=== PATIENT | male | born 1965 | race Caucasian/White ===

== ENCOUNTER → 2020-12-14 14:44 | Outpatient (BNVA) | payer OTHER, SELFPAY | PROVIDERS: PCP Internal Medicine; Visit Provider Internal Medicine Cardiovascular Disease | DX: I25.10 Atherosclerotic heart disease of native coronary artery without angina pectoris (principal); I34.0 Nonrheumatic mitral (valve) insufficiency | CPT/HCPCS: 93005 ==

== ENCOUNTER → 2021-01-27 13:44 | Outpatient (REF) | payer OTHER, SELFPAY ==
--- NOTE | 2021-01-27 13:46 | CA_ITS ---
Transthoracic Echocardiogram Patient (Last, First, Middle): Saravanan Morgan J Gender: Male Date of : 1965 Age: 56 Procedure Date: 01/27/2021 Procedure Type: Transthoracic Echocardiogram Location: OP Height: 175.26 cm Weight: 117.94 kg BSA: 2.31 m2 Heart Rate: bpm BP: 150 / 90 mmHg Director Engineering: BRUNILDA Referring MD: Rene Reaves MD Waybill Clerk: Rene Reaves MD Symptoms: I34.0 - Nonrheumatic mitral (valve) insufficiency Study Quality: Fair ECG Rhythm: Sinus Conclusions: - 1. Normal LV systolic function with grade 1 diastolic dysfunction 2. Mild to moderate eccentric mitral regurgitation 3. Normal RV systolic pressure 4. No pericardial effusion Findings Left Ventricle Normal left ventricular size, thickness, and systolic function. The visually estimated ejection fraction is between 55-60%. Spectral Doppler is indicative of an impaired relaxation filling pattern. E/E prime ratio is <8, consistent with normal filling pressures. Evidence suggests grade I (mild) diastolic dysfunction. Right Ventricle Normal right ventricular cavity size and systolic function. Atria The left atrium is normal in size. There is no evidence of interatrial shunt. The right atrium is normal in size. Aortic Valve Normal aortic valve structure and function. There is no aortic valve stenosis. There is no aortic valve regurgitation. Mitral Valve There is mild anterior and posterior mitral leaflet thickening. There is mild to moderate mitral valve regurgitation. The mitral regurgitation jet is directed anteriorly. There is no mitral valve stenosis. Pulmonic Valve The pulmonic valve was not well visualized. Tricuspid Valve Likely normal tricuspid valve structure and function. There is trace tricuspid valve regurgitation. The right ventricular systolic pressure is normal. The right ventricular systolic pressure is 15 mmHg. There is no evidence of pulmonary hypertension. Great Vessels All visible segments of the aorta are normal in size. The pulmonary artery was not well visualized. Venous The inferior vena cava is normal in size and collapses greater than 50% with inspiration. Pericardium/Pleural There is no evidence of pericardial effusion. Prior Study Comparison Changes noted compared to prior study dated: 03/08/2019. Mitral regurgitation severity appears to be more [id number] Measurements 2D Linear Measurements IVSd: 1.02 0.6-0.9/0.6-1.0 cm LVIDd: 5.20 3.9-5.3/4.2-5.9 cm LVIDd Index: 2.25 2.4-3.2/2.2-3.1 cm/m2 LVIDs: 3.74 2.0-3.6 cm LVPWd: 1.00 0.7-1.1 cm Ao Root: 4.00 2.1-3.5 cm LA Diam: 3.10 2.7-3.8/3.0-4.0 cm LAIDs Index: 1.34 1.5-2.3 cm/m2 LV Mass: 245.19 67-162/88-224 g LV Mass Index: 106.14 43-95/49-115 g/m2 LVOT Diam: 2.30 3.0+(-)1.3 cm 2D Systolic Function EF 4C: 54.60 >55% EF 2C: 55.70 >55% EF BiP: 57.30 >55% Mitral Valve MV Pk E: 0.78 MV PK A: 0.77 MV Decel Time: 183.00 E/A: 1.00 E'Lateral: 10.00 E'Medial: 7.18 E/E' Med: 10.90 E/E' Lat: 7.80 PHT: 54.00 MVA PHT: 4.07 Decel [place]: 4.28 Aortic Valve AoV Pk Nino: 1.32 AoV Mn Nino: 0.87 AoV VTI: 0.26 AoV Pk Grad: 7.00 Aov Mn Grad: 4.00 SUMAYA Cont.VTI: 2.95 LVOT LVOT Pk Nino: 0.88 LVOT Mn Nino: 0.58 LVOT VTI: 0.18 LVOT Pk Grad: 3.00 LVOT Mn Grad: 2.00 LVOT Diam: 2.30 LVOT Area: 4.15 Diastolic Function MV Pk E: 0.78 MV Pk A: 0.77 E/A: 1.00 E'Medial: 7.18 E/E' Med: 10.90 E' Laterial: 10.00 E/E' Lat: 7.80 Tricuspid Valve TR Pk Nino: 1.72 TR Pk Grad: 12.00 RA Press: 3.00 RVSP: 15.00 Great Vessels Aorta Ao Root-2D: 4.00 2.0-3.7 cm Ao Asc: 3.70 2.1-3.4 cm Ao Arch: 3.00 Updated in Other Vendor System with Status of Final Rene Reaves MD electronically signed on 01/28/2021 12:07:16 PM with status of Final
== END ==
LOC: HO.CARD 13:44
PROVIDERS: PCP Internal Medicine; Visit Provider Internal Medicine Cardiovascular Disease
DX: I35.0 Nonrheumatic aortic (valve) stenosis (principal)
CPT/HCPCS: 93306

== ENCOUNTER 2021-08-17 06:12 | Outpatient (REF) | payer OTHER, SELFPAY ==
[2021-08-17 07:54] LABS: Cholesterol 132 mg/dL; HDL Cholesterol 40 mg/dL; LDL Cholesterol Calculated 75 mg/dl; Triglycerides 88 mg/dL
[2021-08-19 16:47] LABS: CRP High Sensitivity 1.3 mg/L
== END 2021-08-17 06:13 | disposition home or self-care (01) ==
LOC: HO.LAB 06:12
PROVIDERS: PCP Internal Medicine; Visit Provider Internal Medicine Cardiovascular Disease
DX: I25.10 Atherosclerotic heart disease of native coronary artery without angina pectoris (principal); E78.5 Hyperlipidemia, unspecified
CPT/HCPCS: 36415; 80061; 86141

== ENCOUNTER 2021-08-24 06:05 | Outpatient (REF) | payer OTHER, SELFPAY ==
[2021-08-24 06:13] LABS: MANUAL DIFF FLAG NO
[2021-08-24 07:25] LABS: Basophils Absolute Auto 0.1 X10*3/uL (0.0-0.2); Basophils Percent Auto 0.6 % (0-2); Eosinophils Absolute Auto 0.2 X10*3/uL (0.0-0.4); Eosinophils Percent Auto 2.6 % (0-4); Hematocrit 46.8 % (42.0-52.0); Imm Gran Abs Auto 0.09 X10*3/uL (0.00-0.03); Imm Gran Pct Auto 1.1 % (0.0-0.4); Lymphocytes Absolute Auto 3.1 X10*3/uL (1.2-4.9); Mean Corpuscular HGB Conc 34.2 g/dl (31.0-36.0); Mean Corpuscular Hemoglobin 30.4 pg (27.0-33.0); Mean Corpuscular Volume 88.8 fL (80.0-98.0); Mean Platelet Volume 11.2 fL (9.4-12.4); Monocytes Absolute Auto 0.6 X10*3/uL (0.1-1.2); Monocytes Percent Auto 7.1 % (2-11); Neutrophils Absolute Auto 4.5 x10*3/uL (2.0-8.3); Neutrophils Percent Auto 52.6 % (45-73); Platelet Count 212 X10*3/uL (160-400); Red Blood Count 5.27 X10*6/uL (4.60-5.80); Red Cell Distribution Width 12.1 % (11.0-16.0); White Blood Count 8.5 X10*3/uL (4.8-10.8)
[2021-08-24 07:56] LABS: Estimated Average Glucose 123 mg/dL; Hemoglobin A1c % 5.9 %
[2021-08-24 08:00] LABS: Creatinine Urine 101.72 mg/dL; Microalbum/Creatinine Ratio Ur 7.8 ug/mg cr
[2021-08-24 08:17] LABS: Alanine Aminotransferase 49 U/L (0-40); Albumin Level 4.6 g/dL (3.5-5.0); Alkaline Phosphatase 70 U/L (39-117); Anion Gap 13 (12-20); Aspartate Amino Transferase 25 U/L (5-37); Bilirubin Total 2.1 mg/dL (0.0-1.0); Blood Urea Nitrogen 16 mg/dL (9-16); Calcium 9.2 mg/dL (8.4-10.2); Carbon Dioxide 27 mmol/L (22-29); Chloride 104 mmol/L (96-108); Cholesterol 118 mg/dL; Estimated Glomerular Filt Rate > 60; Glucose Random 117 mg/dL (60-115); HDL Cholesterol 39 mg/dL; LDL Cholesterol Calculated 59 mg/dl; Potassium 4.3 mmol/L (3.3-5.1); Sodium 140 mmol/L (135-145); Triglycerides 101 mg/dL
[2021-08-24 08:23] LABS: Free T4 (Free Thyroxine) 0.84 ng/dL (0.71-1.85); Prostate Specific Antigen Scr 0.21 ng/mL (<0.05-4.0); Thyroid Stimulating Hormone 1.73 uIU/mL (0.32-4.0)
[2021-08-24 08:37] LABS: Folate > 20.0 ng/mL (> or = 4.0); Vitamin B12 595 pg/mL (200-900)
== END 2021-08-24 06:06 | disposition home or self-care (01) ==
LOC: HO.LAB 06:05
PROVIDERS: PCP Internal Medicine; Visit Provider Internal Medicine
DX: E11.65 Type 2 diabetes mellitus with hyperglycemia (principal); I10 Essential (primary) hypertension; E78.00 Pure hypercholesterolemia, unspecified
CPT/HCPCS: 36415; 80053; 80061; 82043; 82607; 82746; 83036; 84153; 84439; 84443; 85025

== ENCOUNTER 2021-08-26 16:19 | Outpatient (REF) | payer OTHER, SELFPAY ==
--- NOTE | ~2021-08-26 | XR_ITS ---
EXAMINATION: XR KNEE, LEFT CLINICAL INFORMATION: Left knee pain COMPARISON: None TECHNIQUE: Four views of the left knee. This includes AP upright view. FINDINGS: No fracture or subluxation. Mild medial compartment joint space narrowing. Small tricompartmental marginal osteophytes. No joint effusion. The soft tissues are unremarkable. XR/XR knee LT 4V IMPRESSION: Mild degenerative changes of the left knee.
== END 2021-08-26 16:20 | disposition home or self-care (01) ==
LOC: HO.XRAY 16:19
PROVIDERS: PCP Internal Medicine; Visit Provider Nurse Practitioner Family
DX: M25.562 Pain in left knee (principal)
CPT/HCPCS: 73564

== ENCOUNTER → 2021-12-30 14:52 | Outpatient (BNVA) | payer OTHER, SELFPAY | PROVIDERS: PCP Internal Medicine; Referring Provider Internal Medicine; Visit Provider Internal Medicine Cardiovascular Disease | DX: I25.10 Atherosclerotic heart disease of native coronary artery without angina pectoris (principal); I34.0 Nonrheumatic mitral (valve) insufficiency | CPT/HCPCS: 93005 ==

== ENCOUNTER → 2022-02-10 12:48 | Outpatient (REF) | payer OTHER, SELFPAY ==
--- NOTE | 2022-02-10 12:51 | CA_ITS ---
Transthoracic Echocardiogram Patient (Last, First, Middle): Saravanan Morgan J Gender: Male Date of : 1965 Age: 57 Procedure Date: 02/10/2022 Procedure Type: Transthoracic Echocardiogram Location: OP Height: 177.8 cm Weight: 117.94 kg BSA: 2.33 m2 Heart Rate: bpm BP: 142 / 92 mmHg Music Writer: BRUNILDA Suárez MD: Rene Reaves MD Heat And Frost Insulator: Rene Reaves MD Symptoms: I34.0 - Nonrheumatic mitral (valve) insufficiency Study Quality: Fair ECG Rhythm: Sinus Conclusions: - 1. Normal LV systolic function with grade 1 diastolic dysfunction 2. Mild mitral regurgitation 3. Mildly dilated ascending aorta at 4.1 cm 4. Normal RV systolic pressure 5. No pericardial effusion Findings Left Ventricle Normal left ventricular size, thickness, and systolic function. The visually estimated ejection fraction is between 55-60%. Spectral Doppler is indicative of an impaired relaxation filling pattern. E/E prime ratio is <8, consistent with normal filling pressures. Evidence suggests grade I (mild) diastolic dysfunction. Right Ventricle Normal right ventricular cavity size and systolic function. Atria Both atria are normal in size. There is no evidence of interatrial shunt. Aortic Valve Normal aortic valve structure and function. There is no aortic valve stenosis. There is no aortic valve regurgitation. Mitral Valve Normal mitral valve structure and function. There is mild mitral valve regurgitation. There is no mitral valve stenosis. Pulmonic Valve The pulmonic valve was not well visualized. Tricuspid Valve Normal tricuspid valve structure. There is trace tricuspid valve regurgitation. The right ventricular systolic pressure is normal. The right ventricular systolic pressure is 11 mmHg. Normal right atrial pressure. There is no evidence of pulmonary hypertension. Great Vessels The pulmonary artery was not well visualized. There is mild dilatation of the ascending aorta measuring 4.10 cm. Venous The inferior vena cava is normal in size and collapses greater than 50% with inspiration. Pericardium/Pleural There is no evidence of pericardial effusion. Prior Study Comparison No significant change compared to prior study dated: 01/27/2021. ascending aorta is mildly dilated Measurements 2D Linear Measurements IVSd: 1.11 0.6-0.9/0.6-1.0 cm LVIDd: 4.84 3.9-5.3/4.2-5.9 cm LVIDd Index: 2.08 2.4-3.2/2.2-3.1 cm/m2 LVIDs: 3.76 2.0-3.6 cm LVPWd: 1.11 0.7-1.1 cm LA Diam: 4.20 2.7-3.8/3.0-4.0 cm LAIDs Index: 1.80 1.5-2.3 cm/m2 LV Mass: 248.06 67-162/88-224 g LV Mass Index: 106.46 43-95/49-115 g/m2 LVOT Diam: 2.40 3.0+(-)1.3 cm 2D Systolic Function EF 4C: 52.60 >55% EF 2C: 56.70 >55% EF BiP: 57.70 >55% Mitral Valve MV Pk E: 0.61 MV PK A: 0.76 MV Decel Time: 202.00 E/A: 0.80 E'Lateral: 8.70 E'Medial: 5.87 E/E' Med: 10.40 E/E' Lat: 7.00 PHT: 59.00 MVA PHT: 3.73 Decel [place]: 3.04 Aortic Valve AoV Pk Nino: 1.30 AoV Mn Nino: 0.82 AoV VTI: 0.23 AoV Pk Grad: 7.00 Aov Mn Grad: 3.00 SUMAYA Cont.VTI: 3.56 LVOT LVOT Pk Nino: 0.83 LVOT Mn Nino: 0.56 LVOT VTI: 0.18 LVOT Pk Grad: 3.00 LVOT Mn Grad: 1.00 LVOT Diam: 2.40 LVOT Area: 4.52 Diastolic Function MV Pk E: 0.61 MV Pk A: 0.76 E/A: 0.80 E'Medial: 5.87 E/E' Med: 10.40 E' Laterial: 8.70 E/E' Lat: 7.00 Right Ventricle TAPSE (mm): 17.00 TVS' Nino: 10.10 Tricuspid Valve TR Pk Nino: 1.43 TR Pk Grad: 8.00 RA Press: 3.00 RVSP: 11.00 Great Vessels Aorta Sinus of Valsalva: 3.80 2.0-3.[address] [place]: 3.64 1.7-3.4 cm Ao Asc: 4.10 2.1-3.4 cm Ao Arch: 3.40 Updated in Other Vendor System with Status of Final Rene Reaves MD electronically signed on 02/11/2022 11:16:09 AM with status of Final
== END ==
LOC: HO.CARD 12:48
PROVIDERS: PCP Internal Medicine; Visit Provider Internal Medicine Cardiovascular Disease
DX: I34.0 Nonrheumatic mitral (valve) insufficiency (principal)
CPT/HCPCS: 93306

== ENCOUNTER 2022-09-16 07:40 | Outpatient (REF) | payer OTHER, SELFPAY ==
[2022-09-16 07:59] LABS: MANUAL DIFF FLAG NO
[2022-09-16 08:16] LABS: Basophils Absolute Auto 0.1 X10*3/uL (0.0-0.2); Basophils Percent Auto 0.6 % (0-2); Eosinophils Absolute Auto 0.2 X10*3/uL (0.0-0.4); Eosinophils Percent Auto 2.7 % (0-4); Hematocrit 44.5 % (42.0-52.0); Hemoglobin 15.6 g/dl (14.0-18.0); Imm Gran Abs Auto 0.05 X10*3/uL (0.00-0.03); Imm Gran Pct Auto 0.6 % (0.0-0.4); Lymphocytes Absolute Auto 2.8 X10*3/uL (1.2-4.9); Lymphocytes Percent Auto 35.5 % (20-40); Mean Corpuscular HGB Conc 35.1 g/dl (31.0-36.0); Mean Corpuscular Hemoglobin 30.8 pg (27.0-33.0); Mean Corpuscular Volume 87.9 fL (80.0-98.0); Mean Platelet Volume 10.5 fL (9.4-12.4); Monocytes Absolute Auto 0.7 X10*3/uL (0.1-1.2); Monocytes Percent Auto 8.3 % (2-11); Neutrophils Absolute Auto 4.1 x10*3/uL (2.0-8.3); Neutrophils Percent Auto 52.3 % (45-73); Platelet Count 224 X10*3/uL (160-400); Red Blood Count 5.06 X10*6/uL (4.60-5.80); Red Cell Distribution Width 12.4 % (11.0-16.0); White Blood Count 7.9 X10*3/uL (4.8-10.8)
[2022-09-16 08:41] LABS: Estimated Average Glucose 120 mg/dL; Hemoglobin A1c % 5.8 %
[2022-09-16 09:11] LABS: Alanine Aminotransferase 56 U/L (0-40); Albumin Level 4.5 g/dL (3.5-5.0); Alkaline Phosphatase 86 U/L (39-117); Anion Gap 14 (12-20); Aspartate Amino Transferase 27 U/L (5-37); Bilirubin Total 1.6 mg/dL (0.0-1.0); Blood Urea Nitrogen 16 mg/dL (9-16); Calcium 9.3 mg/dL (8.4-10.2); Carbon Dioxide 23 mmol/L (22-29); Chloride 106 mmol/L (96-108); Cholesterol 103 mg/dL; Estimated Glomerular Filt Rate > 60; Glucose Random 108 mg/dL (60-115); HDL Cholesterol 30 mg/dL; LDL Cholesterol Calculated 58 mg/dl; Sodium 139 mmol/L (135-145); Total Protein 6.9 g/dL (6.5-8.0); Triglycerides 79 mg/dL
[2022-09-16 09:27] LABS: Free T4 (Free Thyroxine) 0.84 ng/dL (0.71-1.85); Thyroid Stimulating Hormone 1.67 uIU/mL (0.32-4.0)
[2022-09-16 12:20] LABS: Microalbum/Creatinine Ratio Ur 5.9 ug/mg cr
[2022-09-16 15:06] LABS: Folate 14.7 ng/mL (> or = 4.0); Vitamin B12 430 pg/mL (200-900)
[2022-09-16 15:39] LABS: Prostate Specific Antigen Scr 0.29 ng/mL (<0.05-4.0)
== END 2022-09-16 07:41 | disposition home or self-care (01) ==
LOC: HO.LAB 07:40
PROVIDERS: PCP Internal Medicine; Visit Provider Internal Medicine
DX: E11.65 Type 2 diabetes mellitus with hyperglycemia (principal); I25.10 Atherosclerotic heart disease of native coronary artery without angina pectoris; I10 Essential (primary) hypertension; E78.00 Pure hypercholesterolemia, unspecified; Z12.5 Encounter for screening for malignant neoplasm of prostate
CPT/HCPCS: 36415; 80053; 80061; 82043; 82607; 82746; 83036; 84153; 84439; 84443; 85025

== ENCOUNTER → 2023-01-03 14:50 | Outpatient (BNVA) | payer OTHER, SELFPAY | PROVIDERS: PCP Internal Medicine; Referring Provider Internal Medicine; Visit Provider Internal Medicine Cardiovascular Disease | DX: I71.20 Thoracic aortic aneurysm, without rupture, unspecified (principal); I25.10 Atherosclerotic heart disease of native coronary artery without angina pectoris; I34.0 Nonrheumatic mitral (valve) insufficiency | CPT/HCPCS: 93005 ==

== ENCOUNTER → 2023-05-01 15:13 | Outpatient (BNV) | payer OTHER, SELFPAY | PROVIDERS: PCP Internal Medicine; Visit Provider Internal Medicine | DX: E11.65 Type 2 diabetes mellitus with hyperglycemia (principal) | CPT/HCPCS: 83036 ==

== ENCOUNTER 2023-11-07 14:43 | Outpatient (AMB) | payer OTHER, SELFPAY ==
[2023-11-07 14:54] VITALS: BP 148/60; PULSE 100; O2SAT 95; BMI 41.1
--- NOTE | 2023-11-07 14:54 | MHC.PC.OV ---
Vital Signs 11/07/23 14:54 Height 5 ft 9 in Weight 278 lb 0.4 oz BMI 41.1 BP 148/60 H Blood Pressure Location Lt brachial Position Sitting Pulse 100 Pulse Source Pulse Oximeter Pulse Oximetry (%) 95 Oxygen Delivery Method Room Air Intake Visit Reasons: Annual Exam Intake Note: Patient is here today for a physical. Landscape Contractor Required: No Allergies lisinopril Allergy (Unknown, Verified 11/07/23 14:54) cough Medication List - Last Reconciled 11/07/23 by Shawnee Romo MD amlodipine 5 mg PO DAILY aspirin 81 mg PO DAILY 90 days atorvastatin 40 mg PO BEDTIME famotidine (Pepcid) 20 mg PO DAILY PRN 30 days losartan 100 mg PO DAILY 90 days metformin 500 mg PO DAILY Tobacco use date assessed: 11/07/23 Dental Screening Dental Screen Date: 11/07/23 Did you have a dental visit in the last 12 months?: No Did you have a dental problem in the last 6 months where you did not have access to dental care?: No HPI Annual Exam HPI Details 58-year-old morbidly obese male with coronary artery disease diabetes mellitus hypercholesterolemia GERD hypertension coming in for for physical exam last seen in October 2022. Patient's colonoscopy was done in May 2014 and due this year patient was seen by the Cardiology in December 2022 mild thoracic aortic aneurysm. urgent care thought flu but dx pharyngitis- viral. [facility] Medical History (Updated 11/07/23 @ 15:50 by Shawnee Romo MD) Obesity Liver cyst Renal calculus, right Gilbert syndrome Alcohol abuse Mitral regurgitation CAD (coronary artery disease) Obesity (BMI 30-39.9) Hypertension GERD (gastroesophageal reflux disease) Hypercholesterolemia Type 2 diabetes mellitus with hyperglycemia Surgical History Trigger finger of left hand History of intussusception History of arthroscopy Family History Father Aortic dissection Mother Hypertension Paternal Grandmother CVD (cerebrovascular disease) Maternal Aunt CVD (cerebrovascular disease) Brother Myocardial infarct Social History (Updated 11/07/23 @ 15:49 by Shawnee Romo MD) Housing: House Alcohol intake: current Comment: 2-3 x a week 2 beers Patient Tobacco Use Status: Former Tobacco user Tobacco use type: Cigarette Years Smoked: 1998 quit e-Cigarette/Vaping Use: Never Used Second Hand Smoke Exposure: No Current occupational status: employed Cognitive needs: No Hearing needs: No Vision needs: No Questionnaire PHQ-9 Over the last 2 weeks, how often have you been bothered by any of the following problems? 1. Little interest or pleasure in doing things: not at all 2. Feeling down, depressed, or hopeless: not at all 3. Trouble falling or staying asleep, or sleeping too much: not at all 4. Feeling tired or having little energy: not at all 5. Poor appetite or overeating: not at all 6. Feeling bad about yourself - or that you are a failure or have let yourself or your family down: not at all 7. Trouble concentrating on things, such as reading the newspaper or watching television: not at all 8. Moving or speaking so slowly that other people could have noticed. Or the opposite - being so fidgety or restless that you have been moving around a lot more than usual: not at all 9. Thoughts that you would be better off or of hurting yourself in some way: not at all Total score: 0 Depression Screening Interpretation: Negative Depression Screening Done: Yes Source: Developed by Drs. Hernando George, Shanita Jacobson, Efren Irving and colleagues, with an educational ashutosh from [employer]. Thrive Questionnaire Date Thrive assessed: 11/07/23 I am a: Patient What is your living situation today?: I have a steady place to live Within the past 12 months, did the food you bought not last and you didn't have the money to get more?: Never true Within the past 12 months, did you worry whether your food would run out before you got money to buy more?: Never true Do you have trouble paying for medicines?: No Do you have trouble getting transportation to medical appointments?: No Do you have trouble paying your heating and electricity bill?: No Do you have trouble taking care of your child, family member or friend?: No Do you have trouble with day-to-day activities such as bathing, preparing meals, shopping, managing finances, etc.?: No Are you currently unemployed and looking for a job?: No Are you interested in more education?: No Please select the resources that you would like help with: None THRIVE Score: 0 AUDIT C Alcohol Use Questionnaire (AUDIT-C) 1. How often do you have a drink containing alcohol?: 2-3 times a week 2. How many drinks containing alcohol do you have on a typical day when you are drinking?: 3 or 4 3. How often do you have six or more drinks on one occasion?: Never Total Score: 4 SANAZ-7 AMB Questionnaire SANAZ-7 Date SANAZ - 7 assessed: 11/07/23 Feeling nervous, anxious, or on edge: 0 = Not at all Not being able to stop or control worryin = Not at all Worrying too much about different things: 0 = Not at all Trouble relaxin = Not at all Being so restless that it is hard to sit still: 0 = Not at all Becoming easily annoyed or irritable: 0 = Not at all Feeling afraid as if something awful might happen: 0 = Not at all Total SANAZ-7 score (0-4 normal; 5-9 mild; 10-14 moderate; 15-21 severe): 0 Source: Developed by Drs. Hernando George, Shanita Jacobson, Efren Irving and colleagues, with an educational ashutosh from [employer]. Review of Systems Const Denies poor appetite and Denies weakness Eyes Denies no additional complaints ENT Reports Normal hearing present, Denies dizziness, Denies nasal congestion, Denies tinnitus and Denies sore throat Card Denies chest pain, Denies syncope, Denies rapid heart rate and Denies dyspnea Resp Denies cough and Denies dyspnea GI Denies change in stool character, Reports constipation, Denies diarrhea, Denies nausea and Denies vomiting Denies dysuria and Denies urinary frequency Neuro Reports Normal hearing present, Denies confusion, Denies dizziness, Denies syncope and Denies weakness Psych Denies confusion Physical exam (Primary Care) Vital Signs: Last Vital Signs Pulse 100 11/07/23 14:54 BP 148/60 H 11/07/23 14:54 Pulse Ox 95 11/07/23 14:54 Oxygen Delivery Method Room Air 11/07/23 14:54 BMI result Body Mass Index 41.1 Tobacco/Smoking Status: Tobacco use Status Tobacco use date assessed 11/07/23 11/07/23 14:55 Patient Tobacco Use Status Former Tobacco user 11/07/23 14:55 Tobacco use type Cigarette 11/07/23 14:55 e-Cigarette/Vaping Use Never Used 11/07/23 14:55 PHQ-9: PHQ-9 Score PHQ-9: Total score 0 11/07/23 15:21 Depression Screening Interpretation: Negative Thrive Assessment: Date of Thrive Assessment Date Thrive assessed 11/07/23 11/07/23 14:55 Const General: No confusion Orientation/consciousness: No confusion HENMT Head: Yes normocephalic Ears: external ears normal and TM's normal bilaterally Face and sinus: Yes normal facial exam Mouth: moist mucous membranes Throat: Yes tonsils normal Eyes Conjunctivae: conjunctivae normal Pupils: Equal, round and reactive pupils present and Pupil accommodation reflex normal Direct Ophthalmoscopy: normal light reflex Neck Neck: No lymphadenopathy Thyroid: Thyroid normal Chest Chest palpation & inspection: normal inspection of the chest Resp Effort & Inspection: normal respiratory effort and no audible wheezes Auscultation: clear to auscultation bilaterally, no crackles, no wheezes and lung sounds not diminished Cardio Rate: regular rate Rhythm: regular rhythm Peripheral pulses: radial pulses present and dorsalis pedis present GI Other: colon test requested, pedal pulse and pin prick good Palpation (GI): no masses Auscultation: normal bowel sounds and normoactive bowel sounds Rectal Exam - Male: Yes deferred Skin General skin exam: no rashes or lesions noted Rashes: no rashes Neuro General: No confusion Cranial nerves: Yes Equal, round and reactive pupils present and Yes Normal hearing present Cognition (Neuro): normal cognition Gait exam (Neuro): Normal gait present Motor exam (neuro): 5/5 motor strength present throughout Deep tendon reflexes (DTR's): Right brachioradialis reflex intensity grade: 2+, Left brachioradialis reflex intensity grade: 2+, Right patellar reflex intensity grade: 2+ and Left patellar reflex intensity grade: 2+ Extrem General: No edema Assessment and Plan Assessment & Plan (1) Annual physical exam: Code(s): Z00.00 - Encounter for general adult medical examination without abnormal findings (2) CAD (coronary artery disease): Comment: Elevated coronary calcium score, total of 42 suggestive underlying coronary artery disease Code(s): I25.10 - Atherosclerotic heart disease of [place] coronary artery without angina pectoris (3) Morbid obesity: Code(s): E66.01 - Morbid (severe) obesity due to excess calories (4) Type 2 diabetes mellitus with hyperglycemia: Code(s): E11.65 - Type 2 diabetes mellitus with hyperglycemia (5) Hypercholesterolemia: Code(s): E78.00 - Pure hypercholesterolemia, unspecified (6) GERD (gastroesophageal reflux disease): Code(s): K21.9 - Gastro-esophageal reflux disease without esophagitis (7) Hypertension: Comment: February 2019 normal left ventricle impaired relaxation moderate MR February 2019 stress test negative Code(s): I10 - Essential (primary) hypertension (8) Thoracic aortic aneurysm: Comment: January 2022 Code(s): I71.20 - Thoracic aortic aneurysm, without rupture, unspecified Plan: Will repeat echocardiogram (9) Colon cancer screening: Code(s): Z12.11 - Encounter for screening for malignant neoplasm of colon Orders: Orders Free T4 (Free Thyroxine) Today E11.65 - Type 2 diabetes mellitus with hyperglycemia Microalbumin, Random (w Creat) Today E11.65 - Type 2 diabetes mellitus with hyperglycemia Creatinine Urine Today E11.65 - Type 2 diabetes mellitus with hyperglycemia AMB Hemoglobin A1c Today E11.65 - Type 2 diabetes mellitus with hyperglycemia Complete Blood Count Auto Diff Today E11.65 - Type 2 diabetes mellitus with hyperglycemia Comprehensive Met. Panel Today E11.65 - Type 2 diabetes mellitus with hyperglycemia Hemoglobin A1c Today E11.65 - Type 2 diabetes mellitus with hyperglycemia Thyroid Stimulating Hormone Today E11.65 - Type 2 diabetes mellitus with hyperglycemia Vitamin B12 and Folate Today E11.65 - Type 2 diabetes mellitus with hyperglycemia Lipid Panel Today E11.65 - Type 2 diabetes mellitus with hyperglycemia, E78.00 - Pure hypercholesterolemia, unspecified Prostate Specific Antigen Scr Today E11.65 - Type 2 diabetes mellitus with hyperglycemia CA echo transthoracic complete Today I71.20 - Thoracic aortic aneurysm, without rupture, unspecified Referrals Gastroenterology Referral Z12.11 - Encounter for screening for malignant neoplasm of colon Medications: Refilled famotidine (Pepcid) 20 mg PO DAILY 30 days PRN 30 tabs 0RF gerd I71.20 - Thoracic aortic aneurysm, without rupture, unspecified Coding Level of Care Code Est Pt Prev Care 40-64y([id number]) Diagnoses Annual physical exam Z00.00 CAD (coronary artery disease) I25.10 Morbid obesity E66.01 Type 2 diabetes mellitus with hyperglycemia E11.65 Hypercholesterolemia E78.00 GERD (gastroesophageal reflux disease) K21.9 Hypertension I10 Thoracic aortic aneurysm I71.20 Colon cancer screening Z12.11
== END 2023-11-07 16:12 | disposition home or self-care (01) ==
PROVIDERS: Visit Provider Internal Medicine
DX: Z00.00 Encounter for general adult medical examination without abnormal findings (principal); E66.01 Morbid (severe) obesity due to excess calories; E11.65 Type 2 diabetes mellitus with hyperglycemia; Z68.41 Body mass index [BMI] 40.0-44.9, adult; I71.20 Thoracic aortic aneurysm, without rupture, unspecified; I25.10 Atherosclerotic heart disease of native coronary artery without angina pectoris; E78.00 Pure hypercholesterolemia, unspecified; K21.9 Gastro-esophageal reflux disease without esophagitis; I10 Essential (primary) hypertension
CPT/HCPCS: 83036; 99396

== ENCOUNTER → 2023-11-16 08:08 | Outpatient (REF) | payer OTHER, SELFPAY ==
--- NOTE | 2023-11-16 08:10 | CA_ITS ---
Transthoracic Echocardiogram Patient (Last, First, Middle): Saravanan Morgan J Gender: Male Date of : 1965 Age: 58 Procedure Date: 11/16/2023 Procedure Type: Transthoracic Echocardiogram Location: OP Height: 175.26 cm Weight: 122.47 kg BSA: 2.35 m2 Heart Rate: 81 bpm BP: 158 / 94 mmHg Operations Recruiter: ALDEN Referring MD: Rene Reaves MD Symptoms: I25.10 - Atherosclerotic heart disease of [place] coronary artery without... Study Quality: Adequate ECG Rhythm: Sinus Conclusions: - The left ventricular systolic function is normal. The calculated ejection fraction is 59% by biplane method. - No obvious valvular pathology seen on this study. Findings Left Ventricle Normal left ventricular cavity size. There is mildly increased left ventricular wall thickness. The left ventricular systolic function is normal. The calculated ejection fraction is 59% by biplane method. There is no evidence of regional wall motion abnormalities. Diastolic function is normal for age. LV peak GLS -14.1%. Right Ventricle Mildly increased right ventricular cavity size. There is normal right ventricular systolic function. Atria Both atria are normal in size. Aortic Valve There is a normal trileaflet aortic valve. There is mild calcification of the aortic valve. There is no aortic valve stenosis. There is no aortic valve regurgitation. Mitral Valve The mitral valve appears normal. There is trace mitral valve regurgitation. There is no mitral valve stenosis. Pulmonic Valve The pulmonic valve is likely normal. Tricuspid Valve There is trace tricuspid valve regurgitation. Tricuspid regurgitation envelope is inadequate for calculation of right ventricular systolic pressure. Great Vessels The asc aorta is normal in size. There is mild dilatation of the ascending aorta measuring 4.10 cm. Venous The inferior vena cava is normal in size and collapses greater than 50% with inspiration. Pericardium/Pleural There is no evidence of pericardial effusion. Recommendations, Care & Conclusions No obvious valvular pathology seen on this study. Measurements 2D Linear Measurements IVSd: 1.23 0.6-0.9/0.6-1.0 cm LVIDd: 4.14 3.9-5.3/4.2-5.9 cm LVIDd Index: 1.76 2.4-3.2/2.2-3.1 cm/m2 LVIDs: 2.57 2.0-3.6 cm LVPWd: 1.15 0.7-1.1 cm LA Diam: 3.80 2.7-3.8/3.0-4.0 cm LAIDs Index: 1.62 1.5-2.3 cm/m2 LV Mass: 214.46 67-162/88-224 g LV Mass Index: 91.26 43-95/49-115 g/m2 LVOT Diam: 2.40 3.0+(-)1.3 cm 2D Systolic Function EF 4C: 59.40 >55% EF 2C: 62.00 >55% EF BiP: 59.30 >55% Mitral Valve MV Pk E: 0.88 MV PK A: 1.05 MV Decel Time: 195.00 E/A: 0.80 E'Lateral: 8.70 E'Medial: 5.33 E/E' Med: 16.60 E/E' Lat: 10.10 PHT: 57.00 MVA PHT: 3.86 Decel [place]: 4.52 Aortic Valve AoV Pk Nino: 1.19 AoV Mn Nino: 0.86 AoV VTI: 0.24 AoV Pk Grad: 6.00 Aov Mn Grad: 3.00 SUMAYA Cont.VTI: 3.44 LVOT LVOT Pk Nino: 0.92 LVOT Mn Nino: 0.66 LVOT VTI: 0.18 LVOT Pk Grad: 3.00 LVOT Mn Grad: 2.00 LVOT Diam: 2.40 LVOT Area: 4.52 Diastolic Function MV Pk E: 0.88 MV Pk A: 1.05 E/A: 0.80 E'Medial: 5.33 E/E' Med: 16.60 E' Laterial: 8.70 E/E' Lat: 10.10 Right Ventricle TAPSE (mm): 22.90 TVS' [place]ino: 10.40 Tricuspid Valve RA Press: 3.00 Great Vessels Aorta Sinus of Valsalva: 4.00 2.0-3.5 cm Ao Asc: 4.10 2.1-3.4 cm Ao Arch: 3.60 Updated in Other Vendor System with Status of Final Yunior Lynch MD electronically signed on 11/18/2023 10:17:40 AM with status of Final
== END ==
LOC: HO.CARD 08:08
PROVIDERS: PCP Internal Medicine; Visit Provider Internal Medicine Cardiovascular Disease
DX: I25.10 Atherosclerotic heart disease of native coronary artery without angina pectoris (principal); I34.0 Nonrheumatic mitral (valve) insufficiency; I71.20 Thoracic aortic aneurysm, without rupture, unspecified
CPT/HCPCS: 93306; 93356

== ENCOUNTER → 2023-11-16 08:10 | Outpatient (BNV) | payer OTHER, SELFPAY | PROVIDERS: PCP Internal Medicine; Visit Provider Internal Medicine | DX: I25.10 Atherosclerotic heart disease of native coronary artery without angina pectoris (principal) | CPT/HCPCS: 93306 ==

== ENCOUNTER 2023-11-21 06:50 | Outpatient (REF) | payer OTHER, SELFPAY ==
[2023-11-21 07:07] LABS: MANUAL DIFF FLAG NO
[2023-11-21 07:31] LABS: Basophils Absolute Auto 0.1 X10*3/uL (0.0-0.2); Basophils Percent Auto 0.9 % (0-2); Eosinophils Absolute Auto 0.2 X10*3/uL (0.0-0.4); Eosinophils Percent Auto 2.2 % (0-4); Hematocrit 43.7 % (42.0-52.0); Hemoglobin 15.6 g/dl (14.0-18.0); Imm Gran Abs Auto 0.04 X10*3/uL (0.00-0.03); Imm Gran Pct Auto 0.5 % (0.0-0.4); Lymphocytes Absolute Auto 2.9 X10*3/uL (1.2-4.9); Lymphocytes Percent Auto 37.4 % (20-40); Mean Corpuscular HGB Conc 35.7 g/dl (31.0-36.0); Mean Corpuscular Hemoglobin 31.3 pg (27.0-33.0); Mean Corpuscular Volume 87.8 fL (80.0-98.0); Mean Platelet Volume 10.6 fL (9.4-12.4); Monocytes Absolute Auto 0.6 X10*3/uL (0.1-1.2); Monocytes Percent Auto 7.4 % (2-11); Neutrophils Percent Auto 51.6 % (45-73); Platelet Count 209 X10*3/uL (160-400); Red Blood Count 4.98 X10*6/uL (4.60-5.80); Red Cell Distribution Width 12.1 % (11.0-16.0); White Blood Count 7.8 X10*3/uL (4.8-10.8)
[2023-11-21 07:52] LABS: Estimated Average Glucose 120 mg/dL; Hemoglobin A1c % 5.8 % (<6.0)
[2023-11-21 08:06] LABS: Alanine Aminotransferase 43 U/L (0-40); Albumin Level 4.6 g/dL (3.5-5.0); Alkaline Phosphatase 77 U/L (39-117); Anion Gap 12 (12-20); Aspartate Amino Transferase 26 U/L (5-37); Bilirubin Total 1.8 mg/dL (0.0-1.0); Blood Urea Nitrogen 16 mg/dL (9-16); Calcium 9.2 mg/dL (8.4-10.2); Carbon Dioxide 28 mmol/L (22-29); Chloride 103 mmol/L (96-108); Cholesterol 109 mg/dL (<200); Estimated Glomerular Filt Rate > 60; Glucose Random 128 mg/dL (60-115); HDL Cholesterol 38 mg/dL (>40); LDL Cholesterol Calculated 54 mg/dL (<100); Sodium 139 mmol/L (135-145); Total Protein 7.2 g/dL (6.5-8.0); Triglycerides 86 mg/dL (<150)
[2023-11-21 08:21] LABS: Free T4 (Free Thyroxine) 0.86 ng/dL (0.71-1.85); Thyroid Stimulating Hormone 1.78 uIU/mL (0.32-4.0)
[2023-11-21 08:22] LABS: Creatinine Urine 157.31 mg/dL; Microalbum/Creatinine Ratio Ur 8.2 ug/mg cr (<30)
[2023-11-21 08:34] LABS: Prostate Specific Antigen Scr 0.27 ng/mL (<0.05-4.0); Vitamin B12 363 pg/mL (200-900)
== END 2023-11-21 06:51 | disposition home or self-care (01) ==
LOC: HO.LAB 06:50
PROVIDERS: PCP Internal Medicine; Visit Provider Internal Medicine
DX: Z12.5 Encounter for screening for malignant neoplasm of prostate (principal); E11.65 Type 2 diabetes mellitus with hyperglycemia; E78.00 Pure hypercholesterolemia, unspecified
CPT/HCPCS: 36415; 80053; 80061; 82043; 82570; 82607; 82746; 83036; 84153; 84439; 84443; 85025

== ENCOUNTER 2024-01-25 14:47 | Outpatient (AMB) | payer BC, SELFPAY ==
[2024-01-25 15:11] VITALS: BP 140/90; PULSE 92; BMI 42.3
--- NOTE | 2024-01-25 15:11 | MHC.OFFVIS ---
Vital Signs 01/25/24 15:11 Height 5 ft 9 in Weight 286 lb 9.615 oz BMI 42.3 BP 140/90 H Blood Pressure Location Lt brachial Position Sitting Pulse 92 Pulse Source Monitor Intake Visit Reasons: 1 yr fu after echo (NS) General Ophthalmologist Required: No Allergies lisinopril Allergy (Unknown, Verified 01/25/24 15:12) cough Medication List - Last Reconciled 01/25/24 by Tosha Guerrero, ALLEN-C amlodipine 5 mg PO DAILY aspirin 81 mg PO DAILY 90 days atorvastatin 40 mg PO BEDTIME losartan 100 mg PO DAILY 90 days metformin 500 mg PO DAILY HPI HPI 1 yr fu after echo (NS): Details: Saravanan is a 59-year-old male with past medical history of hypertension, hyperlipidemia, diabetes, coronary artery disease with elevated calcium score 42, thoracic aorta aneurysm who presents for follow-up. Today he reports he has been doing very well since his last visit 01/03/2023. He does not get any chest discomfort at rest or with activity. No shortness of breath, PND, orthopnea or edema. No lightheadedness, palpitations, presyncope, syncope, falls. He works in [employer] and says he tolerates it well. He has been taking his medications as directed. He believes that his blood pressure is elevated in the mid day. He typically takes his meds at noon. [facility] Medical History Obesity Liver cyst Renal calculus, right Gilbert syndrome Alcohol abuse Mitral regurgitation CAD (coronary artery disease) Obesity (BMI 30-39.9) Hypertension GERD (gastroesophageal reflux disease) Hypercholesterolemia Type 2 diabetes mellitus with hyperglycemia Surgical History Trigger finger of left hand History of intussusception History of arthroscopy Family History Father Aortic dissection Mother Hypertension Paternal Grandmother CVD (cerebrovascular disease) Maternal Aunt CVD (cerebrovascular disease) Brother Myocardial infarct Social History Housing: House Alcohol intake: current Comment: 2-3 x a week 2 beers Patient Tobacco Use Status: Former Tobacco user Tobacco use type: Cigarette Years Smoked: 1998 quit e-Cigarette/Vaping Use: Never Used Second Hand Smoke Exposure: No Current occupational status: employed Cognitive needs: No Hearing needs: No Vision needs: No Review of Systems Const All systems reviewed & are unremarkable except as noted in HPI and below ENT Denies dizziness Card Denies chest pain, Denies chest pain at rest, Denies chest pain with activity, Denies rapid heart rate, Denies pedal edema, Denies edema, Denies leg edema, Denies lightheadedness, Denies palpitations, Denies dyspnea, Denies dyspnea on exertion and Denies orthopnea Resp Denies cough, Denies dyspnea and Denies dyspnea on exertion GI Denies hematochezia and Denies change in stool character Musc Denies abnormal gait, Denies limited range of motion, Denies muscle cramps, Denies muscle weakness, Denies numbness, Denies radiating pain into limb, Denies stiffness and Denies tingling Neuro Denies abnormal gait, Denies dizziness, Denies numbness and Denies tingling Endo Denies palpitations Physical Exam Vital Signs: Last Vital Signs Pulse 92 01/25/24 15:11 BP 140/90 H 01/25/24 15:11 BMI result Body Mass Index 42.3 Const Other: Morbid obesity General: cooperative, comfortable and no acute distress Orientation/consciousness: patient oriented x3 Neck Neck: Yes normal visual inspection and Yes no JVD Resp Effort & Inspection: normal respiratory effort Auscultation: clear to auscultation bilaterally, no crackles, no rales, no rhonchi and no wheezes Cardio Jugular venous distension: no JVD Rate: regular rate Rhythm: regular rhythm Heart sounds: S1 normal heart sound present, S2 normal heart sound present, no murmurs and no rubs GI Other: Abdominal obesity Neuro General: patient oriented x3 Extrem General: Yes normal to inspection and No no pedal edema Psych Appearance: grossly normal Mental Status: mental status grossly normal Speech and movement: Normal speech and movement present Office Procedures EKG Details: Today, read by me, normal sinus rhythm, left axis deviation, overall which is similar to prior EKG no acute ST or T-wave abnormalities, rate 92, QTC 487 milliseconds [id number], Complete Assessment & Plan Assessment & Plan (1) CAD (coronary artery disease): Comment: Elevated coronary calcium score, total of 42 suggestive underlying coronary artery disease Code(s): I25.10 - Atherosclerotic heart disease of [place] coronary artery without angina pectoris Category: Medical Plan: This patient has presumed coronary artery disease with coronary calcium score 42. He has cardiac risk factors of hypertension, hyperlipidemia, diabetes. He has no reports of anginal sounding symptoms. EKG done today shows normal sinus rhythm, left axis deviation, rate 92. Presumed coronary disease diagnosis reviewed with him. Signs and symptoms of angina discussed. Continue aspirin indefinitely. Continue atorvastatin with ideal LDL goal less than 70. Labs done on 11/21/2023 showed LDL 54. Hemoglobin A1c goal less than 7. Recent labs showed hemoglobin A1c 5.8. Blood pressure elevated at 140/90. He is currently on losartan 100 mg daily and amlodipine 5 mg daily. Will increase his amlodipine up to 10 mg daily. Suggested he take his medications in the morning instead of noon time. This may give him better blood pressure coverage through the day. He has an upcoming PCP visit and his blood pressure will be rechecked at that time. Cardiology follow-up in 1 year, sooner if needed. (2) Thoracic aortic aneurysm: Comment: January 2022 Code(s): I71.20 - Thoracic aortic aneurysm, without rupture, unspecified Category: Medical Plan: Patient is known to have a mildly dilated ascending aorta. Last echocardiogram done 11/16/2023 shows EF 59%, no valve abnormalities, no regional wall motion abnormalities, ascending aorta 4.1 cm. The importance of good blood pressure control reviewed with him. Amlodipine increased as above. (3) Hypertension: Comment: February 2019 normal left ventricle impaired relaxation moderate MR February 2019 stress test negative Code(s): I10 - Essential (primary) hypertension Category: Medical Plan: As above (4) Morbid obesity: Code(s): E66.01 - Morbid (severe) obesity due to excess calories Category: Medical Plan: Benefits a weight loss and increasing his physical activity reviewed with him. (5) Hypercholesterolemia: Code(s): E78.00 - Pure hypercholesterolemia, unspecified Category: Medical Plan: Well controlled. (6) Type 2 diabetes mellitus with hyperglycemia: Code(s): E11.65 - Type 2 diabetes mellitus with hyperglycemia Category: Medical Plan: Followed by PCP. Plan Time spent on chart review, documentation, interview and assessment Medications: New amlodipine 10 mg PO DAILY 90 tabs 3RF Discontinued amlodipine Discontinued Reason: Doctor's Order 5 mg PO DAILY 90 tabs 3RF Coding Level of Care Code Est Pt Level 4 (71501) Diagnoses CAD (coronary artery disease) I25.10 Thoracic aortic aneurysm I71.20 Hypertension I10 Morbid obesity E66.01 Hypercholesterolemia E78.00 Type 2 diabetes mellitus with hyperglycemia E11.65 CPT Codes EKG - CPT: 96167-[id number], Complete ([id number]) Time Spent (min) 28
== END 2024-01-25 15:44 | disposition home or self-care (01) ==
PROVIDERS: PCP Internal Medicine; Visit Provider Nurse Practitioner Family
DX: I71.21 Aneurysm of the ascending aorta, without rupture (principal)
CPT/HCPCS: 93010; 99214

== ENCOUNTER → 2024-01-25 14:47 | Outpatient (BNVA) | payer SELFPAY | PROVIDERS: PCP Internal Medicine; Visit Provider Nurse Practitioner Family | DX: I25.10 Atherosclerotic heart disease of native coronary artery without angina pectoris (principal); I71.20 Thoracic aortic aneurysm, without rupture, unspecified; I10 Essential (primary) hypertension; E66.01 Morbid (severe) obesity due to excess calories; E78.00 Pure hypercholesterolemia, unspecified; Z79.82 Long term (current) use of aspirin; Z79.899 Other long term (current) drug therapy | CPT/HCPCS: 93005 ==

== ENCOUNTER 2024-09-10 12:53 | Emergency (ER) | payer BC, SELFPAY ==
[2024-09-10 12:56] VITALS: BP 146/91; PULSE 99; RESP 20; TEMP 37; O2SAT 99; BMI 43.6
--- OUTSIDE RECORDS SUMMARY | 2024-09-10 12:56 | XMS_ITS | Patient Health Record ---
Author Organization [facility] Address [address] [place] [address] Care Team Providers Care Winch Runner Name Role Phone Shawnee Romo Primary Care Provider Rafael Castrejon Unavailable [phone] Reason For Referral No Information Medications Medication SIG (Take, Route, Frequency, Duration) Notes Start Date End Date Status Losartan Potassium 100 MG 1 tablet Orally Once a day 03/12/2019 Active Ranitidine Active Social History Tobacco Use: Social History Observation Description Date Details (start date - stop date) Former Smoker NA - NA Tobacco Use/Smoking Question Answer Notes Are you a: former smoker When did you stop smoking? 20 yrs ago Additional Findings: Tobacco Non-User Current no n-smoker Alcohol Screen Question Answer Notes Did you have a drink contain ing alcohol in the past year? Yes How often did you have a dri nk containing alcohol in the past year? Monthly or less (1 point) Points 1 Interpretation Negative Tobacco use other than smoking: Question Answer Notes Are you an other tobacco user? No Problems Problem Type SNOMED Code ICD Code Onset Dates Problem Status W/U Status Risk Notes Problem Plantar fascial fibromatosis (50364425) Plantar fascial fibromatosis (M72.2) Active confirmed Plan Of Treatment No Information Insurance Providers Payer Name Payer Address Payer Phone Subscriber Number Group Number Insured Name Patient Relationship to Insured Coverage Start Date Coverage End Date [facility] [address] [place] [id number] Saravanan Morgan Self - patient is the insured Medical (General) History Medical History History ICD Code High blood pressure Reflux ( GERD) Warts Mitral valve regurgitation Intussuception Surgical History Surgery Date(Month/Year)
--- NOTE | 2024-09-10 12:57 | ED_ITS ---
HPI - Animal Bite General Chief Complaint: Animal Bite Stated Complaint: Dog bite Time Seen by Provider: 09/10/24 13:02 Source: patient and family Mode of arrival: ambulatory Limitations: no limitations History of Present Illness ED Provider: Edgar Monreal PA-C HPI narrative: 59 yo male with history of DM2, CAD, HTN, GERD presenting with a dog bite to his right forearm that occurred 90 minutes ago. His nephew's dog bit his forearm when he was playing with another dog. He sustained a V-shaped wound on the anterior forearm. He washed it with soap and water and put antibiotic ointment on it. unknown last tdap. dog was up to date on its shots. complaint: animal bite Onset (ago): minute(s) Animal: dog Description of animal: household pet Mechanism: bite Location - Extremities: right: forearm Pain description: burning Severity scale (1-10): 4 Context: playing with animal Associated symptoms: none Treatments prior to arrival: wound dressing(s) and irrigation Related Data Patient tetanus UTD: No Previous Rx's ?Medication ?Instructions ?Recorded aspirin 81 mg tablet,delayed 81 mg PO DAILY 90 days #90 tabs 01/23/24 release amlodipine 10 mg tablet 10 mg PO DAILY #90 tabs 07/16/24 losartan 100 mg tablet 100 mg PO DAILY 90 days #90 tabs 07/21/24 metformin 500 mg tablet 500 mg PO DAILY #90 tabs 08/16/24 atorvastatin 40 mg tablet 40 mg PO BEDTIME #90 tabs 08/19/24 amoxicillin 875 mg-potassium 1 tab PO BID #10 tabs 09/10/24 clavulanate 125 mg tablet Allergies Allergy/AdvReac Type Severity Reaction Status Date / Time lisinopril Allergy Unknown cough Verified 09/10/24 12:59 Review of Systems Review of Systems: Yes all other systems are reviewed and are negative COUNT INCLUDES THE [facility] Past Medical History Medical History Obesity Liver cyst Renal calculus, right Gilbert syndrome Alcohol abuse Mitral regurgitation CAD (coronary artery disease) Obesity (BMI 30-39.9) Hypertension GERD (gastroesophageal reflux disease) Hypercholesterolemia Type 2 diabetes mellitus with hyperglycemia Surgical History Trigger finger of left hand History of intussusception History of arthroscopy Family History Family History Father Aortic dissection Mother Hypertension Paternal Grandmother CVD (cerebrovascular disease) Maternal Aunt CVD (cerebrovascular disease) Brother Myocardial infarct Social History Social History Housing: House Alcohol intake: current Comment: 2-3 x a week 2 beers Patient Tobacco Use Status: Former Tobacco user Tobacco use type: Cigarette Years Smoked: 1998 quit e-Cigarette/Vaping Use: Never Used Second Hand Smoke Exposure: No Advance Directives: Yes Advance Directives Information Provided: Yes Advance Directives on File: No Current occupational status: employed Cognitive needs: No Hearing needs: No Vision needs: No Physical Exam ED Vital Signs: Vital Signs - 24 hr 09/10/24 12:56 Temperature 98.6 F Pulse Rate 99 Respiratory Rate 20 Blood Pressure 146/91 H Pulse Oximetry 99 Oxygen Delivery Method Room Air BMI result Body Mass Index 43.6 Appearance: Alert. Oriented X3. No acute distress. HEENT: normal inspection CVS: Normal heart rate and rhythm. Pulses normal. Respiratory: No respiratory distress. Skin: Skin warm and dry. Normal skin color. Normal skin turgor. No rashes. Extremities: right anterior forearm with a v-shaped superficial bite apprix 2cm x2cm, no active bleeding. no deep laceration, no puncture wound. no surrounding erythema or induration. NV intact distally. Neuro: Oriented X 3. No motor deficit. No sensory deficit. Course Course Course Narrative: This is an RME: Additional HPI, ROS, PE not included below will be deferred to primary provider. RME assessment and note performed by: Lucretia Burns PA-C This is s a 16-nn[age]iob-male who presents to the ER with complaints of dog bite to right forearm x 15 hours. Dog belongs to nephew, up to date with rabies vaccinations. R forearm with dog bite noted, no active bleeding Plan: Wound cleansing, +/- tdap Medical Decision Making Medical Decision Making MDM Narrative: 59 yo diabetic male presenting with a dog bite to the right forearm. no lac that requires repair. wound cleaned w/ betadine. DSD applied. Tdap given along w/ augmentin stable for d/c home with abx, local wound care instructions and return precautions provided. Differential Diagnosis Differential Diagnoses: The differential diagnosis associated with the presentation includes dog bite, dot scratch, cellulitis, compartment syndrome Independent Historian Clinical information obtained from an independent historian. History obtained from or confirmed by: Spouse External Record Review External record reviewed: Prior outpatient labs Tests considered The following testing was considered but not selected: considered forearm xray, low suspicion for bony involvement. Prescription Management I considered prescription management with: Pain Medication and Antibiotic Chronic Conditions Patient?s care impacted by: Diabetes and Hypertension Critical Care Time Critical Care Time Critical Care Time: No Discharge Plan Discharge Clinical Impression: Dog bite Patient Disposition: Home, Self-Care Instructions: Animal Bite (ED) Additional Instructions: Take the prescribed antibiotics as directed, complete the entire course and do not miss any doses Keep wound clean and covered Use antibiotic ointment 1-2 times per day Ice and elevate as needed for pain and swelling. Take motrin and tylenol as needed for pain. If you develop signs of infection including increased pain, swelling, redness or drainage of pus come back to the ER for further evaluation. Prescriptions: New amoxicillin-pot clavulanate 875-125 mg tablet 1 tab PO BID Qty: 10 0RF No Action aspirin 81 mg tablet,delayed release (DR/EC) 81 mg PO DAILY 90 Days Qty: 90 11RF amlodipine 10 mg tablet 10 mg PO DAILY Qty: 90 3RF losartan 100 mg tablet 100 mg PO DAILY 90 Days Qty: 90 3RF metformin 500 mg tablet 500 mg PO DAILY Qty: 90 3RF atorvastatin 40 mg tablet 40 mg PO BEDTIME Qty: 90 3RF Referrals: Po,Shawnee Monterroso MD [Primary Care Provider] - Print Language: Welsh
[2024-09-10] MEDS: Amoxicillin/Potassium Clav 875 MG TABLET PO (13:19)
[2024-09-10] MEDS: Diphth,Pertus(ACell),Tet Adult 0.5 ML SYRINGE IM (13:19)
[2024-09-10 13:25] VITALS: BP 146/91; PULSE 99; RESP 20; TEMP 37; O2SAT 99
== END 2024-09-10 13:26 | disposition home or self-care (01) ==
PROVIDERS: Emergency Provider Student in an Organized Health Care Education/Training Program; PCP Internal Medicine
DX: S51.851A Open bite of right forearm, initial encounter (principal); W54.0XXA Bitten by dog, initial encounter; Y93.89 Activity, other specified; Y92.9 Unspecified place or not applicable; Y99.8 Other external cause status; Z87.891 Personal history of nicotine dependence; Z79.899 Other long term (current) drug therapy; Z23 Encounter for immunization
CPT/HCPCS: 90471; 90715; 99282; 99284

== ENCOUNTER 2025-03-26 09:57 | Outpatient (AMB) | payer BC, SELFPAY ==
[2025-03-26 10:17] VITALS: BP 120/74; PULSE 90; BMI 45.2
--- NOTE | 2025-03-26 10:17 | A.OFFVIS_ITS ---
Vital Signs 03/26/25 10:17 Height 5 ft 7 in Weight 288 lb 12.889 oz BMI 45.2 BP 120/74 Blood Pressure Location Lt brachial Position Sitting Pulse 90 Intake Visit Reasons: 1 year f/u RS Intake Note: 1 year follow-up with ekg feeling good Allergies lisinopril Allergy (Unknown, Verified 09/10/24 12:59) cough Medication List - Last Reconciled 03/26/25 by Rene Reaves MD amlodipine 10 mg PO DAILY atorvastatin 40 mg PO BEDTIME losartan 100 mg PO DAILY 90 days metformin 500 mg PO DAILY HPI Comments Details: Saravanan comes for follow-up. Continues to have issues with losing weight. He said he was exercising for few months then fell off the track. He also says his evening meal is pretty heavy and he is not able to control it. He is otherwise doing well. No exertional symptoms of chest pain or shortness of breath. He has not had any recent blood work for his diabetes or lipids. Takes all his medications. Blood pressures been well controlled. [facility] Medical History Obesity Liver cyst Renal calculus, right Gilbert syndrome Alcohol abuse Mitral regurgitation CAD (coronary artery disease) Obesity (BMI 30-39.9) Hypertension GERD (gastroesophageal reflux disease) Hypercholesterolemia Type 2 diabetes mellitus with hyperglycemia Surgical History Trigger finger of left hand History of intussusception History of arthroscopy Family History Father Aortic dissection Mother Hypertension Paternal Grandmother CVD (cerebrovascular disease) Maternal Aunt CVD (cerebrovascular disease) Brother Myocardial infarct Social History Housing: House Alcohol intake: current Comment: 2-3 x a week 2 beers Patient Tobacco Use Status: Former Tobacco user Tobacco use type: Cigarette Years Smoked: 1998 quit e-Cigarette/Vaping Use: Never Used Second Hand Smoke Exposure: No Current occupational status: employed Cognitive needs: No Hearing needs: No Vision needs: No Review of Systems Const Denies chills, Denies fatigue, Denies fever(s), Denies frequent falls, Denies weakness, Denies weight gain and Denies weight loss ENT Denies dizziness Card Denies chest pain, Denies leg edema, Denies lightheadedness, Denies palpitations, Denies dyspnea, Denies dyspnea on exertion, Denies orthopnea and Denies other (loss of consciousness) Resp Denies cough, Denies dyspnea and Denies dyspnea on exertion GI Denies hematochezia and Denies change in stool character Musc Denies abnormal gait, Denies muscle weakness, Denies numbness, Denies radiating pain into limb and Denies tingling Neuro Denies abnormal gait, Denies dizziness, Denies frequent falls, Denies numbness, Denies tingling and Denies weakness Endo Denies fatigue and Denies palpitations Physical Exam Vital Signs: Last Vital Signs Pulse 90 03/26/25 10:17 BP 120/74 03/26/25 10:17 BMI result Body Mass Index 45.2 Const Other: Morbid obesity General: cooperative, comfortable and no acute distress Orientation/consciousness: patient oriented x3 Neck Neck: Yes normal visual inspection and Yes no JVD Resp Effort & Inspection: normal respiratory effort Auscultation: clear to auscultation bilaterally, no crackles, no rales, no rhonchi and no wheezes Cardio Jugular venous distension: no JVD Rate: regular rate Rhythm: regular rhythm Heart sounds: S1 normal heart sound present, S2 normal heart sound present, no murmurs and no rubs GI Other: Abdominal obesity Neuro General: patient oriented x3 Extrem General: Yes normal to inspection and No no pedal edema Psych Appearance: grossly normal Mental Status: mental status grossly normal Speech and movement: Normal speech and movement present Office Procedures EKG Details: EKG shows normal sinus rhythm at 90 [place] [id number], Complete Assessment & Plan Assessment & Plan (1) CAD (coronary artery disease): Comment: Elevated coronary calcium score, total of 42 suggestive underlying coronary artery disease Code(s): I25.10 - Atherosclerotic heart disease of [place] coronary artery without angina pectoris Category: Medical Plan: CAD nonobstructive by elevated calcium score. Multiple risk factors for the same. Discussed about management. Continue aggressive risk factor modification with high-intensity statin therapy. Target goal LDL less than 70 mg/dL. Advised lipid panel in near future. Continue aggressive blood pressure control which is currently well optimized advised to monitor blood pressure at home maintain a log. Goal blood pressures less than 130/84. Aggressive diabetes management. (2) Thoracic aortic aneurysm: Comment: January 2022 Code(s): I71.20 - Thoracic aortic aneurysm, without rupture, unspecified Category: Medical Plan: Mild thoracic aortic enlargement. Follow-up echocardiogram near future. Advised to avoid sudden strenuous isometric exercise. Continue aggressive vascular risk factor modifications above. (3) Morbid obesity: Code(s): E66.01 - Morbid (severe) obesity due to excess calories Category: Medical Plan: Patient main current healthy she appears to be significant weight and inability to manage that. This appears to be due to dietary indiscretion. I have taken the liberty to prescribe him GLP 1 antagonist. We discussed potential side effects associated with it. Will gradually uptitrate the dose monthly. Advised to monitor weight on a regular basis. Advised to call me with any side effects. Will also refer him to bariatric surgery for further evaluation. Will follow up in the clinic otherwise in 1 year's time, sooner p.r.n.. Thank you for allowing me to partake in his care Orders: Orders Basic Metabolic Panel Today I25.10 - Atherosclerotic heart disease of [place] coronary artery without angina pectoris Lipid Panel Today I25.10 - Atherosclerotic heart disease of [place] coronary artery without angina pectoris TSH reflex Free T4 Today I25.10 - Atherosclerotic heart disease of [place] coronary artery without angina pectoris CA echo transthoracic complete Today I71.20 - Thoracic aortic aneurysm, without rupture, unspecified Complete Blood Count no Diff Today I25.10 - Atherosclerotic heart disease of [place] coronary artery without angina pectoris Referrals Bariatric Surgery Referral E66.01 - Morbid (severe) obesity due to excess calories Medications: New semaglutide (weight loss) (Harry) administer weeks 1 through 4 of therapy 0.25 mg (0.5 mL) subcut QWEEK 2 mL 0R F Coding Level of Care Code Est Pt Level 4 (31520) Complex EM visit Add On G2211 Diagnoses CAD (coronary artery disease) I25.10 Thoracic aortic aneurysm I71.20 Morbid obesity E66.01 CPT Codes EKG - CPT: 83755-[id number], Complete ([id number])
--- OUTSIDE RECORDS SUMMARY | 2025-03-26 10:38 | XMS_ITS | Encounter Summary ---
Author Organization [facility] Address [address] [place] [address] Care Team Providers Care Economics Instructor Name Role Phone Unavailable Primary Care Provider Unavailabl e Encounter Details Date Type Department Care Team (Late st Contact Info) Description 08/14/2024 Scanned Document [facility] [place]: Oncology and Hematology [place] [address] [place] [address] Sadie Oates MD [address] [address] Social History Tobacco Use Types Packs/Day Years Used Date Smoking Tobacco: Never Assessed Sex and Gender Information Value Date Recorded Sex Assigned at Not on file Legal Sex Male 6:43 PM EST Gender Identity Not on file Sexual Orientation Not on file documented as of this encounter Plan of Treatment Not on file documented as of this encounter Visit Diagnoses Not on filedocumented in this encounter
--- OUTSIDE RECORDS SUMMARY | 2025-03-26 10:38 | XMS_ITS ---
Author Name [facility] Organization Unknown Care Team Organization Name Specialty Phone Email Start Date End [facility] 08/14/2024
--- OUTSIDE RECORDS SUMMARY | 2025-03-26 10:38 | XMS_ITS | Patient Health Record ---
Author Organization [facility] Address [address] [place] [address] Care Team Providers Care Dedicated Driver Name Role Phone Shawnee Romo Primary Care Provider Rafael Castrejon Unavailable [phone] Reason For Referral No Information Medications Medication [...] Status Risk Notes Problem Plantar fascial fibromatosis (M72.2) Active confirmed Plan Of Treatment No Information Insurance Providers Payer Name Payer Address Payer Phone Subscriber Number Group Number Insured Name Patient Relationship to Insured Coverage Start Date Coverage End Date [facility] [address] [facility] [place] [phone] [id number] Saravanan Morgan Self - patient is the insured Medical (General) History Medical History History ICD Code High blood pressure Reflux ( GERD) Warts Mitral valve regurgitation Intussuception Surgical History Surgery Date(Month/Year)
== END 2025-03-26 10:45 | disposition home or self-care (01) ==
LOC: HO.HCS 09:58
PROVIDERS: PCP Internal Medicine; Visit Provider Internal Medicine Cardiovascular Disease
DX: I25.10 Atherosclerotic heart disease of native coronary artery without angina pectoris (principal); I71.20 Thoracic aortic aneurysm, without rupture, unspecified; E66.01 Morbid (severe) obesity due to excess calories
CPT/HCPCS: 93010; 99214

== ENCOUNTER → 2025-03-26 09:57 | Outpatient (BNVA) | payer BC, SELFPAY | PROVIDERS: PCP Internal Medicine; Visit Provider Internal Medicine Cardiovascular Disease | DX: I25.10 Atherosclerotic heart disease of native coronary artery without angina pectoris (principal) | CPT/HCPCS: 93005 ==

== ENCOUNTER 2025-04-14 10:42 | Outpatient (AMB) | payer BC, SELFPAY ==
[2025-04-14 10:47] VITALS: BP 146/82; PULSE 94; RESP 18; TEMP 36.3; O2SAT 94; BMI 45.3
--- NOTE | 2025-04-14 10:47 | A.OFFPC_ITS ---
Vital Signs 04/14/25 10:47 Height 5 ft 7 in Weight 289 lb BMI 45.3 BP 146/82 H Blood Pressure Location Lt brachial Position Sitting Respiration 18 Pulse 94 Pulse Source Pulse Oximeter Temp 97.3 F Temp Source Temporal Artery Scan Pulse Oximetry (%) 94 Oxygen Delivery Method Room Air Intake Visit Reasons: follow up Computer Software Engineer Required: No Accompanied by: Self / Same As Patient Allergies lisinopril Allergy (Unknown, Verified 04/14/25 10:48) cough Tobacco use date assessed: 04/14/25 Dental Screening Dental Screen Date: 04/14/25 Did you have a dental visit in the last 12 months?: No Did you have a dental problem in the last 6 months where you did not have access to dental care?: No Was dental information given to patient?: No [facility] Medical History Obesity Liver cyst Renal calculus, right Gilbert syndrome Alcohol abuse Mitral regurgitation CAD (coronary artery disease) Obesity (BMI 30-39.9) Hypertension GERD (gastroesophageal reflux disease) Hypercholesterolemia Type 2 diabetes mellitus with hyperglycemia Surgical History Trigger finger of left hand History of intussusception History of arthroscopy Family History Father Aortic dissection Mother Hypertension Paternal Grandmother CVD (cerebrovascular disease) Maternal Aunt CVD (cerebrovascular disease) Brother Myocardial infarct Social History Housing: House Alcohol intake: current Comment: 2-3 x a week 2 beer Patient Tobacco Use Status: Former Tobacco user Tobacco use type: Cigarette Years Smoked: 1998 quit e-Cigarette/Vaping Use: Never Used Second Hand Smoke Exposure: No Current occupational status: employed Cognitive needs: No Hearing needs: No Vision needs: No Questionnaire PHQ-9 Over the last 2 weeks, how often have you been bothered by any of the following problems? 1. Little interest or pleasure in doing things: not at all 2. Feeling down, depressed, or hopeless: not at all 3. Trouble falling or staying asleep, or sleeping too much: not at all 4. Feeling tired or having little energy: not at all 5. Poor appetite or overeating: not at all 6. Feeling bad about yourself - or that you are a failure or have let yourself or your family down: not at all 7. Trouble concentrating on things, such as reading the newspaper or watching television: not at all 8. Moving or speaking so slowly that other people could have noticed. Or the opposite - being so fidgety or restless that you have been moving around a lot more than usual: not at all 9. Thoughts that you would be better off or of hurting yourself in some way: not at all Total score: 0 Depression Screening Interpretation: Negative Depression Screening Done: Yes Source: Developed by Drs. Hernando George, Shanita Jacobson, Efren Irving and colleagues, with an educational ashutosh from [employer]. Thrive Questionnaire Date Thrive assessed: 04/14/25 I am a: Patient What is your living situation today?: I have a steady place to live Within the past 12 months, did the food you bought not last and you didn't have the money to get more?: Never true Within the past 12 months, did you worry whether your food would run out before you got money to buy more?: Never true Do you have trouble paying for medicines?: No Do you have trouble getting transportation to medical appointments?: No Do you have trouble paying your heating and electricity bill?: No Do you have trouble taking care of your child, family member or friend?: No Do you have trouble with day-to-day activities such as bathing, preparing meals, shopping, managing finances, etc.?: No Are you currently unemployed and looking for a job?: No Are you interested in more education?: Yes Please select the resources that you would like help with: None Currently or been in a relationship where the following occur: No concerns reported THRIVE Score: 0 AUDIT C Alcohol Use Questionnaire (AUDIT-C) 1. How often do you have a drink containing alcohol?: 2-3 times a week 2. How many drinks containing alcohol do you have on a typical day when you are drinking?: 3 or 4 3. How often do you have six or more drinks on one occasion?: Never Total Score: 4 SANAZ-7 AMB Questionnaire SANAZ-7 Date SANAZ - 7 assessed: 04/14/25 Feeling nervous, anxious, or on edge: 0 = Not at all Not being able to stop or control worryin = Not at all Worrying too much about different things: 0 = Not at all Trouble relaxin = Not at all Being so restless that it is hard to sit still: 0 = Not at all Becoming easily annoyed or irritable: 0 = Not at all Feeling afraid as if something awful might happen: 0 = Not at all Total SANAZ-7 score (0-4 normal; 5-9 mild; 10-14 moderate; 15-21 severe): 0 Source: Developed by Drs. Hernando George, Shanita Jacobson, Efren Irving and colleagues, with an educational ashutosh from [employer]. Physical exam (Primary Care) Vital Signs: Last Vital Signs Temp 97.3 F 04/14/25 10:47 Pulse 94 04/14/25 10:47 Resp 18 04/14/25 10:47 BP 146/82 H 04/14/25 10:47 Pulse Ox 94 04/14/25 10:47 Oxygen Delivery Method Room Air 04/14/25 10:47 BMI result Body Mass Index 45.3 Tobacco/Smoking Status: Tobacco use Status Tobacco use date assessed 04/14/25 04/14/25 10:56 Patient Tobacco Use Status Former Tobacco user 04/14/25 10:56 Tobacco use type Cigarette 04/14/25 10:56 e-Cigarette/Vaping Use Never Used 04/14/25 10:56 PHQ-9: PHQ-9 Score PHQ-9: Total score 0 04/14/25 11:14 Depression Screening Interpretation: Negative Thrive Assessment: Date of Thrive Assessment Date Thrive assessed 04/14/25 04/14/25 10:56 Currently or been in a relationship where the following occur: No concerns reported Const General: alert; No acute distress Eyes Conjunctivae: conjunctivae normal Resp Auscultation: clear to auscultation bilaterally Cardio Rate: regular rate Rhythm: regular rhythm GI Inspection: Yes normal to inspection Extrem General: Yes normal to inspection and No edema Results AMB Hemoglobin A1c AMB Hemoglobin A1c 6.6 % Last Edit by Keyona Peterson CMA on 04/14/25 11:10 Results Reviewed Results Reviewed: Laboratory Last Values Hgb A1c (Clinic) 6.6 % (4.0-6.0) H 04/14/25 10:56 Coding Level of Care Code Est Pt Level 4 (09266) Complex EM visit Add On G2211 Diagnoses Hypertension I10 CAD (coronary artery disease) I25.10 Thoracic aortic aneurysm I71.20 Hypercholesterolemia E78.00 Type 2 diabetes mellitus with hyperglycemia E11.65 Morbid obesity E66.01 GERD (gastroesophageal reflux disease) K21.9 Colon cancer screening Z12.11 Assessment & Plan Assessment & Plan (1) Hypertension: Comment: February 2019 normal left ventricle impaired relaxation moderate MR February 2019 stress test negative Code(s): I10 - Essential (primary) hypertension Category: Medical Plan: Continue with blood pressure medication. Decrease salt intake and exercise patient on amlodipine 10 mg once a day losartan 100 mg once a day (2) CAD (coronary artery disease): Comment: Elevated coronary calcium score, total of 42 suggestive underlying coronary artery disease, Code(s): I25.10 - Atherosclerotic heart disease of [place] coronary artery without angina pectoris Category: Medical Plan: Control the cholesterol, weight, blood pressure, diabetes patient follows up with Cardiology (3) Thoracic aortic aneurysm: Comment: January 2022 Code(s): I71.20 - Thoracic aortic aneurysm, without rupture, unspecified Category: Medical Plan: Patient was advised to get an echocardiogram to follow-up (4) Hypercholesterolemia: Code(s): E78.00 - Pure hypercholesterolemia, unspecified Category: Medical Plan: Avoid fried foods, chicken skin, eggs, butter margarine, pastries and meat. Be it pork or beef they have a lot of cholesterol LDL goal of less than 70 and triglyceride of less than 150 on atorvastatin 40 mg once a day patient needs blood work (5) Type 2 diabetes mellitus with hyperglycemia: Code(s): E11.65 - Type 2 diabetes mellitus with hyperglycemia Category: Medical Plan: Decrease the amount of carbohydrate intake, pasta, bread, rice and potatoes are all sugar and that is aside from all the sweet stuff, remember that fruits are good but they are Sweet also. Hemoglobin A1c goal of less than 6.5. Patient has been placed on semaglutide (6) Morbid obesity: Code(s): E66.01 - Morbid (severe) obesity due to excess calories Category: Medical Plan: Diet and exercise referred to bariatric as well as started on semaglutide (7) GERD (gastroesophageal reflux disease): Code(s): K21.9 - Gastro-esophageal reflux disease without esophagitis Category: Medical Plan: Avoid the foods that causes that usually spicy foods, tomato products, juices, coffee, soda and foods that your sensitive to. After eating do not lie down, allow 3-4 hours before in lie down. And keep the head of bed above 30 degrees to avoid the acid from going up. (8) Colon cancer screening: Code(s): Z12.11 - Encounter for screening for malignant neoplasm of colon Category: Medical Plan: Reminded about colonoscopy Plan History of Present Illness The patient is a 60-year-old male presenting for a follow-up visit. The patient has a history of diabetes mellitus, hypercholesterolemia, gastroesophageal reflux disease, hypertension, and coronary artery disease. He was last seen in October 2023 and is currently on medications including amlodipine, losartan, and atorvastatin. In 2021, the patient was diagnosed with melanoma and thoracic aortic aneurysm. He has been advised to undergo regular follow-ups and was reminded about the need for a colonoscopy, as his last one was in 2013. The patient has been experiencing weight gain attributed to dietary indiscretion and has been recommended to start on semaglutide and referred to bariatrics. His hemoglobin A1c is currently 6.6, with a goal of less than 6.5, and his LDL is 54, with a target of less than 70. Health Maintenance - Colonoscopy reminder: Last performed in 2013, advised to schedule follow-up. Social History Review of Systems Physical Exam Results - Labs: Hemoglobin A1c is 6.6, LDL is 54. Plan The patient will continue with his current medications, including amlodipine, losartan, and atorvastatin, to manage hypertension and hypercholesterolemia. He is advised to maintain a target LDL of less than 70 and a hemoglobin A1c goal of less than 6.5. For weight management, the patient has been referred to bariatrics and started on semaglutide. He is encouraged to adhere to dietary modifications and exercise regularly. The patient is reminded to schedule a colonoscopy, as his last one was in 2013. Follow-up with cardiology is advised, and an echocardiogram is recommended to monitor his coronary artery disease. Patient was informed and verbally consented to the use of an ambient scribe for clinic note documentation during this visit. Discussion Notes Patient Instructions - Continue taking amlodipine, losartan, and atorvastatin as prescribed. - Aim for an LDL level of less than 70 and a hemoglobin A1c of less than 6.5. - Follow dietary recommendations and exercise regularly. - Schedule a colonoscopy as soon as possible. - Follow up with cardiology and get an echocardiogram. Orders: Orders Complete Blood Count Auto Diff Today E11.65 - Type 2 diabetes mellitus with hyperglycemia Comprehensive Met. Panel Today E11.65 - Type 2 diabetes mellitus with hyperglycemia Microalbumin, Random (w Creat) Today E11.65 - Type 2 diabetes mellitus with hyperglycemia Hemoglobin A1c Today E11.65 - Type 2 diabetes mellitus with hyperglycemia Prostate Specific Antigen Scr Today E11.65 - Type 2 diabetes mellitus with hyperglycemia AMB Hemoglobin A1c Today Z13.9 - Encounter for screening, unspecified Creatinine Urine Today E11.65 - Type 2 diabetes mellitus with hyperglycemia Free T4 (Free Thyroxine) Today E11.65 - Type 2 diabetes mellitus with hyperglycemia Thyroid Stimulating Hormone Today E11.65 - Type 2 diabetes mellitus with hyperglycemia Vitamin B12 and Folate Today E11.65 - Type 2 diabetes mellitus with hyperglycemia Referrals Gastroenterology Referral Z12.11 - Encounter for screening for malignant neoplasm of colon Medications: Refilled aspirin 81 mg PO DAILY 90 tabs 11RF 90 days I25.10 - Atherosclerotic heart disease of [place] coronary artery without angina pectoris
--- OUTSIDE RECORDS SUMMARY | 2025-04-14 11:55 | XMS_ITS | Patient Health Record ---
Author Organization [facility] Address [address] [facility] [facility] [place] [address] Care Team Providers Care White Sugar Pan Tank Operator Name Role Phone Shawnee Romo Primary Care Provider Rafael Castrejon Unavailable [phone] Reason For Referral No Information Medications Medication [...] Status Risk Notes Problem Plantar fascial fibromatosis ([id number]) Plantar fascial fibromatosis (M72.2) Active confirmed Plan Of Treatment No Information Insurance Providers Payer Name Payer Address Payer Phone Subscriber Number Group Number Insured Name Patient Relationship to Insured Coverage Start Date Coverage End Date [facility] [address] [facility] [place] [address] [id number] Saravanan Morgan Self - patient is the insured Medical (General) History Medical History History ICD Code High blood pressure Reflux ( GERD) Warts Mitral valve regurgitation Intussuception Surgical History Surgery Date(Month/Year)
--- OUTSIDE RECORDS SUMMARY | 2025-04-14 11:55 | XMS_ITS | Clinical Summary ---
Author Organization [facility] Address [address] [place] [phone] Phone Care Team Providers Care Mushroom Sorter Grader Name Role Phone Shawnee Romo MD Primary Care Provider [phone] Medications No known medications Immunizations Immunization Administration Dates Next Due COVID-19 (Pre-07/10) Pfizer Vaccine, mRNA, PF ,09/20/2020 Influenza Quadrivalent w/ Preservative IM 2015 Pneumococcal polysaccharide PPSV23 08/08/2019 Td (adult),2 Lf Tetanus Toxoid, PF, Adsorbed Tdap 05/25/2021,04/02/2009 Social History Tobacco Use Types Packs/Day Years Used Date Smoking Tobacco: Former Smokeless Tobacco: Never Education Answer Date Recorded Are you interested in more education? Not on jermain e 01/13/2023 Are you concerned about learning? Not on file 01/13/2023 No 01/13/2023 No 01/13/2023 Digital Access Answer Date Recorded No 02/11/2023 No 02/11/2023 No 02/11/2023 Reliable internet access at home? Not on file 02/11/2023 Device with a working camera? Not on file Sex and Gender Information Value Date Recorded Sex Assigned at Not on file Legal Sex Male 12:03 PM EDT Gender Identity Not on file Sexual Orientation Not on file Last Filed Vital Signs Vital Sign Reading Time Taken Comments Blood Pressure 182/101 05/25/2021 1:36 PM EDT Pulse 98 05/25/2021 1:36 PM EDT Temperature 36.8 C (98.2 F) 05/25/2021 1:36 PM EDT Respiratory Rate 18 05/25/2021 1:36 PM EDT Oxygen Saturation 96% 05/25/2021 1:36 PM EDT Inhaled Oxygen Concentration - - Weight 126.6 kg (279 lb) 05/25/2021 1:36 PM EDT Height - - Body Mass Index - - Plan of Treatment Health Maintenance Due Date Last Done Comments LIPID PANEL 1966 DEPRESSION SCREENING 1978 SMOKING Hx and SMOKELESS TOBACCO SCREENING 1979 HEPATITIS C SCREENING 01/21/1984 HIV ONE-TIME SCREENING (18-65 YEARS) 01/21/1984 COLOGUARD 2011 COLONOSCOPY 2011 COLORECTAL CANCER SCREENING 2011 FIT TEST 2011 FOBT 2011 SIGMOIDOSCOPY 2011 VIRTUAL COLONOSCOPY 2011 ZOSTER VACCINES (1 of 2) 01/21/2016 PNEUMOCOCCAL VACCINES (50+ years) (2 of 2 - PCV) 08/08/2020 08/08/2019 COVID-19 VACCINE ( season) 2024 08/20/2023, 06/03/2022, 07/02/2021, Additional history exists Adult Td,Tdap Booster 05/25/2031 05/25/2021 , 04/02/2009, 02/09/2000 HEPATITIS A VACCINES Aged Out No long er eligible based on patient's age to complete this topic HIB VACCINES Aged Out No longer eligi ble based on patient's age to complete this topic MENINGOCOCCAL VACCINES (ACWY) Aged Out No longer eligible based on patient's age to complete this topic MENINGOCOCCAL VACCINES (B) Aged Out N o longer eligible based on patient's age to complete this topic Medical Devices Not on file Insurance [facility] [address] [place] [address] [place] [address] [place] [address] [facility] Care Teams Mushroom Sorter Grader Relationship Specialty Start Date End Date Shawnee Romo MD [address] [place] [phone] PCP - General Internal Medicine 05/07/19 Additional Source Comments The information contained in this document represents components of the legal health record. It is not the complete legal health record.[facility]
--- OUTSIDE RECORDS SUMMARY | 2025-04-14 11:55 | XMS_ITS | Encounter Summary ---
Author Organization [facility] Address [address] [place] [address] Care Team Providers Care Radio Program Checker Name Role Phone Unavailable Primary Care Provider Unavailabl e Encounter Details Date Type Department Care Team (Late st Contact Info) Description 08/14/2024 Scanned Document [facility] [place]: Oncology and Hematology [address] [place] [address] Sadie Oates MD [address] [address] Social History Tobacco Use Types [...]
== END 2025-04-14 11:23 | disposition home or self-care (01) ==
LOC: HO.HMCH 10:43
PROVIDERS: PCP Internal Medicine; Visit Provider Internal Medicine
DX: E11.65 Type 2 diabetes mellitus with hyperglycemia (principal); E66.01 Morbid (severe) obesity due to excess calories; Z68.42 Body mass index [BMI] 45.0-49.9, adult; I10 Essential (primary) hypertension; I25.10 Atherosclerotic heart disease of native coronary artery without angina pectoris; I71.20 Thoracic aortic aneurysm, without rupture, unspecified; E78.00 Pure hypercholesterolemia, unspecified; K21.9 Gastro-esophageal reflux disease without esophagitis; Z12.11 Encounter for screening for malignant neoplasm of colon

== ENCOUNTER → 2025-04-14 10:42 | Outpatient (BNVA) | payer BC, SELFPAY | PROVIDERS: PCP Internal Medicine; Visit Provider Internal Medicine | DX: I10 Essential (primary) hypertension (principal); I25.10 Atherosclerotic heart disease of native coronary artery without angina pectoris; I71.20 Thoracic aortic aneurysm, without rupture, unspecified; E78.00 Pure hypercholesterolemia, unspecified; E11.65 Type 2 diabetes mellitus with hyperglycemia; E66.01 Morbid (severe) obesity due to excess calories; K21.9 Gastro-esophageal reflux disease without esophagitis; Z68.42 Body mass index [BMI] 45.0-49.9, adult | CPT/HCPCS: 83036; 96127 ==

== ENCOUNTER 2025-04-21 07:10 | Outpatient (REF) | payer BC, SELFPAY ==
--- OUTSIDE RECORDS SUMMARY | 2025-04-21 07:12 | XMS_ITS | Patient Health Record ---
Author Organization [facility] Address [address] [facility] [place] [address] Care Team Providers Care Wood Model Maker Name Role Phone Shawnee Romo Primary Care Provider Rafael Castrejon Unavailable [phone] Reason For Referral No Information Medications Medication [...] Status Risk Notes Problem Plantar fascial fibromatosis ([id number]) Plantar fascial fibromatosis (M72.2) Active confirmed Plan Of Treatment No Information Insurance Providers Payer Name Payer Address Payer Phone Subscriber Number Group Number Insured Name Patient Relationship to Insured Coverage Start Date Coverage End Date [facility] [address] [place] [id number] Saravanan Morgan Self - patient is the insured Medical (General) History Medical History History ICD Code High blood pressure Reflux ( GERD) Warts Mitral valve regurgitation Intussuception Surgical History Surgery Date(Month/Year)
--- OUTSIDE RECORDS SUMMARY | 2025-04-21 07:12 | XMS_ITS | Clinical Summary ---
Author Organization [facility] Address [address] [facility] [address] [place] [phone] Phone Care Team Providers Care Fast Food Shift Lead Name Role Phone Shawnee Romo MD Primary Care Provider [phone] Medications No known medications Immunizations Immunization Administration [...] topic Medical Devices Not on file Insurance [facility] [address] [place] [address] [place] [address] [place] [address] [facility] Care Teams Fast Food Shift Lead Relationship Specialty Start Date End Date Shawnee Romo MD [address] [place] [phone] PCP - General Internal Medicine 05/07/19 Additional Source Comments The information contained in this document represents components of the legal health record. It is not the complete legal health record.[facility]
[2025-04-21 07:32] LABS: MANUAL DIFF FLAG NO
[2025-04-21 07:50] LABS: Hematocrit 43.6 % (42.0-52.0); Hemoglobin 15.2 g/dl (14.0-18.0); Imm Gran Abs Auto 0.10 X10*3/uL (0.00-0.03); Imm Gran Pct Auto 1.4 % (0.0-0.4); Lymphocytes Absolute Auto 2.5 X10*3/uL (1.2-4.9); Mean Corpuscular HGB Conc 34.9 g/dl (31.0-36.0); Mean Corpuscular Hemoglobin 30.6 pg (27.0-33.0); Mean Corpuscular Volume 87.7 fL (80.0-98.0); NRBC Abs Auto 0.000 X10*3/uL (0.0-0.012); NRBC Pct Auto 0.0 /100WBC (0.0-0.2); Platelet Count 211 X10*3/uL (160-400); Red Blood Count 4.97 X10*6/uL (4.60-5.80); White Blood Count 7.4 X10*3/uL (4.8-10.8)
[2025-04-21 08:11] LABS: Hemoglobin A1C 178.8994 umol/L; Total Hemoglobin (HGBA1C) 3954.4955 umol/L
[2025-04-21 08:25] LABS: Alanine Aminotransferase 40 U/L (0-40); Albumin Level 4.6 g/dL (3.5-5.0); Alkaline Phosphatase 72 U/L (39-117); Anion Gap 11 (12-20); Aspartate Amino Transferase 28 U/L (5-37); Blood Urea Nitrogen 17 mg/dL (9-16); Calcium 8.9 mg/dL (8.4-10.2); Carbon Dioxide 28 mmol/L (22-29); Chloride 106 mmol/L (96-108); Cholesterol 109 mg/dL (<200); Estimated Glomerular Filt Rate > 60; HDL Cholesterol 39 mg/dL (>40); Potassium 4.1 mmol/L (3.3-5.1); Sodium 141 mmol/L (135-145); Total Protein 6.8 g/dL (6.5-8.0); Triglycerides 82 mg/dL (<150)
[2025-04-21 08:45] LABS: Folate 13.6 ng/mL (> or = 4.0); Vitamin B12 351 pg/mL (200-900)
[2025-04-21 08:48] LABS: Free T4 (Free Thyroxine) 0.87 ng/dL (0.71-1.85); Thyroid Stimulating Hormone 1.34 uIU/mL (0.32-4.0)
[2025-04-21 08:51] LABS: Microalbum/Creatinine Ratio Ur 7.9 ug/mg cr (<30)
== END 2025-04-21 07:11 | disposition home or self-care (01) ==
LOC: HO.LAB 07:10
PROVIDERS: Absent Provider Internal Medicine Cardiovascular Disease; PCP Internal Medicine; Visit Provider Internal Medicine
DX: Z12.5 Encounter for screening for malignant neoplasm of prostate (principal); I25.10 Atherosclerotic heart disease of native coronary artery without angina pectoris; E11.65 Type 2 diabetes mellitus with hyperglycemia
CPT/HCPCS: 36415; 80053; 80061; 82043; 82570; 82607; 82746; 83036; 84153; 84439; 84443; 85025

== ENCOUNTER → 2025-05-13 08:09 | Outpatient (REF) | payer BC, SELFPAY ==
--- NOTE | 2025-05-13 08:11 | CA_ITS ---
Transthoracic Echocardiogram Patient (Last, First, Middle): Saravanan Morgan J Gender: M Date of : 1965 Age: 60 Procedure Date: 05/13/2025 Procedure Type: Transthoracic Echocardiogram Location: OP Height: 175. cm Weight: 122.47 kg BSA: 2.34 m2 Heart Rate: 86 bpm BP: 185 / 95 mmHg Inclinometer Tester: MATY Referring MD: Rene Reaves MD Symptoms: I71.20 - Thoracic aortic aneurysm, without rupture, unspecified Study Quality: Fair ECG Rhythm: Sinus Conclusions: - The left ventricular systolic function is normal. The calculated ejection fraction is 56% by biplane method. - No obvious valvular pathology seen on this study. - There is mild dilatation of the ascending aorta measuring 4.00 cm. Findings Left Ventricle Normal left ventricular cavity size. There is mildly increased left ventricular wall thickness. The left ventricular systolic function is normal. The calculated ejection fraction is 56% by biplane method. There is no evidence of regional wall motion abnormalities. Diastolic function is normal for age. Right Ventricle Normal right ventricular cavity size and systolic function. Atria Both atria are normal in size. Aortic Valve There is a normal trileaflet aortic valve. There is no aortic valve stenosis. There is no aortic valve regurgitation. Mitral Valve The mitral valve appears normal. There is trace mitral valve regurgitation. There is no mitral valve stenosis. Pulmonic Valve The pulmonic valve is likely normal. Tricuspid Valve There is trace tricuspid valve regurgitation. There is no evidence of pulmonary hypertension. Great Vessels The aortic arch is normal in size. There is mild dilatation of the ascending aorta measuring 4.00 cm. Venous The inferior vena cava is normal in size and collapses greater than 50% with inspiration. Pericardium/Pleural There is no evidence of pericardial effusion. Prior Study Comparison No significant change compared to prior study dated: 11/16/2023. Recommendations, Care & Conclusions No obvious valvular pathology seen on this study. Measurements 2D Linear Measurements IVSd: 1.22 0.6-0.9/0.6-1.0 cm LVIDd: 3.84 3.9-5.3/4.2-5.9 cm LVIDd Index: 1.64 2.4-3.2/2.2-3.1 cm/m2 LVIDs: 2.35 2.0-3.6 cm LVPWd: 1.13 0.7-1.1 cm LA Diam: 3.50 2.7-3.8/3.0-4.0 cm LAIDs Index: 1.50 1.5-2.3 cm/m2 LV Mass: 187.78 67-162/88-224 g LV Mass Index: 80.25 43-95/49-115 g/m2 LVOT Diam: 2.40 3.0+(-)1.3 cm 2D Systolic Function EF 4C: 58.10 >55% EF 2C: 54.20 >55% EF BiP: 56.30 >55% Mitral Valve MV Pk E: 0.83 MV PK A: 0.94 MV Decel Time: 288.00 E/A: 0.90 E'Lateral: 10.80 E'Medial: 7.18 E/E' Med: 11.50 E/E' Lat: 7.70 PHT: 84.00 MVA PHT: 2.62 Decel [place]: 2.87 Aortic Valve AoV Pk Nino: 1.36 AoV Mn Nino: 0.93 AoV VTI: 0.26 AoV Pk Grad: 7.00 Aov Mn Grad: 4.00 SUMAYA Cont.VTI: 3.55 LVOT LVOT Pk Nino: 1.03 LVOT Mn Nino: 0.73 LVOT VTI: 0.20 LVOT Pk Grad: 4.00 LVOT Mn Grad: 2.00 LVOT Diam: 2.40 LVOT Area: 4.52 Diastolic Function MV Pk E: 0.83 MV Pk A: 0.94 E/A: 0.90 E'Medial: 7.18 E/E' Med: 11.50 E' Laterial: 10.80 E/E' Lat: 7.70 Right Ventricle TAPSE (mm): 25.40 TVS' Nino: 12.50 Tricuspid Valve RA Press: 3.00 Great Vessels Aorta Sinus of Valsalva: 4.00 2.0-3.5 cm Ao Asc: 4.00 2.1-3.4 cm Ao Arch: 3.60 Pulmonary Veins Pulm Vein S/D 1.70 Pulmonary Valve PV Pk Nino: 0.98 Peak PV Grad: 4.00 Updated in Other Vendor System with Status of Final Yunior Lynch MD electronically signed on 05/14/2025 2:59:45 PM with status of Final
--- OUTSIDE RECORDS SUMMARY | 2025-05-13 08:16 | XMS_ITS | Patient Health Record ---
Author Organization [facility] Address [address] [facility] [place] [address] Care Team Providers Care Broker Name Role Phone Shawnee Romo Primary Care Provider Rafael Castrejon Unavailable [phone] Reason For Referral No Information Medications Medication [...] Insured Coverage Start Date Coverage End Date [facility] [address] [place] [phone] [id number] Saravanan Morgan Self - patient is the insured Medical (General) History Medical History History ICD Code High blood pressure Reflux ( GERD) Warts Mitral valve regurgitation Intussuception Surgical History Surgery Date(Month/Year)
--- OUTSIDE RECORDS SUMMARY | 2025-05-13 08:16 | XMS_ITS | Clinical Summary ---
Author Organization [facility] Address [address] [place] [address] Care Team Providers Care Wealth Management Director Name Role Phone Unavailable Primary Care Provider Unavailabl e Social History Tobacco Use Types Packs/Day Years Used Date Smoking Tobacco: Never Assessed Sex and Gender Information Value Date Recorded Sex Assigned at Not on file Legal Sex Male 6:43 PM EST Gender Identity Not on file Sexual Orientation Not on file Plan of Treatment Health Maintenance Due Date Last Done Comments Hepatitis C Virus Screening 1966 HIV Screening 1979 DTaP/Tdap/Td Vaccines (1 - Tdap) 1985 Hepatitis B Vaccines (1 of 3 - 19+ 3-dose series) 01/1985 Pneumococcal Vaccines 50+ (1 of 1 - PCV) 01/21/2016 Zoster (Shingles) Vaccine (1 of 2) 01/21/2016 COVID-19 Vaccine (1 - 2023- season) 2024
--- OUTSIDE RECORDS SUMMARY | 2025-05-13 08:16 | XMS_ITS | Clinical Summary ---
Author Organization [facility] Address [address] [facility] [place] [address] Phone Care Team Providers Care Sterilization Tech Name Role Phone Shawnee Romo MD Primary Care Provider Medications No known medications Immunizations Immunization Administration [...] topic Medical Devices Not on file Insurance [facility] [address] [place] [address] [place] [address] [place] [address] [facility] Care Teams Sterilization Tech Relationship Specialty Start Date End Date Shawnee Romo MD [address] [place] [id number] PCP - General Internal Medicine 05/07/19 Additional Source Comments The information contained in this document represents components of the legal health record. It is not the complete legal health record.[facility]
--- OUTSIDE RECORDS SUMMARY | 2025-05-13 08:16 | XMS_ITS | Encounter Summary ---
Author Organization [facility] Address [address] [place] [address] Care Team Providers Care Global Program Manager Name Role Phone Unavailable Primary Care Provider Unavailabl e Encounter Details Date Type Department Care Team (Late st Contact Info) Description 08/14/2024 Scanned Document [facility] [place]: Oncology and Hematology [place] [address] [place] [address] Sadie Oates MD [address] [phone] Social History Tobacco Use Types [...]
--- OUTSIDE RECORDS SUMMARY | 2025-05-13 08:16 | XMS_ITS | Encounter Summary ---
Author Organization [facility] Address [address] [place] [address] Care Team Providers Care Floor Covering Contractor Name Role Phone Unavailable Primary Care Provider Unavailabl e Encounter Details Date Type Department Care Team (Late st Contact Info) Description 08/14/2024 Scanned Document [facility] [place]: Oncology and Hematology [place] [address] [place] [address] Sadie Oates MD [address] [address] Social History Tobacco Use Types [...]
--- OUTSIDE RECORDS SUMMARY | 2025-05-13 08:16 | XMS_ITS | Encounter Summary ---
Author Organization [facility] Address [address] [place] [address] Phone Care Team Providers Care Furniture Rental Consultant Name Role Phone Shawnee Romo MD Primary Care Provider [phone] Encounter Details Date Type Department Care Team (Late st Contact Info) Description 05/07/2019 Transcribe Orders [facility] [address] [place] [address] Pricila Dunne, ERNESTO [address] [place] [address] [email or web address] Immunity status testing (Primary Dx) Social History Tobacco Use Types Packs/Day Years Used Date Smoking Tobacco: Never Assessed Sex and Gender Information Value Date Recorded Sex Assigned at Not on file Legal Sex Male 12:03 PM EDT Gender Identity Not on file Sexual Orientation Not on file documented as of this encounter Plan of Treatment Not on file documented as of this encounter Results * Hepatitis B surface antibody (05/07/2019 12:31 PM EDT) HBV SURFACE ANTIBODY Negative [facility] Blood 05/07/2019 12:3 1 PM EDT 05/07/2019 12:36 PM EDT us Pricila Dunne CNP LAB BLOOD ORDERABLES Fin al Result [facility] [address] [place] [address] * Rubella antibody, IgG (05/07/2019 12:31 PM EDT) Rubella Ab, IgG Positive Positive [facility] Blood (Blood) 05/07/2019 12: 31 PM EDT 05/07/2019 12:36 PM EDT Pricila Dunne ORTHOPEDIC RADIOLOGIC TECHNOLOGIST NON CULTURE MICROBIOLOGY Final Result Performing Organization Address [facility] Co de Phone Number [address] [address] * Measles antibody, IgG (05/07/2019 12:31 PM EDT) RUBEOLA IGG Positive Positive [facility] Blood (Blood) 05/07/2019 12: 31 PM EDT 05/07/2019 12:36 PM EDT Pricila Dunne ORTHOPEDIC RADIOLOGIC TECHNOLOGIST NON CULTURE MICROBIOLOGY Final Result Performing Organization Address [facility] de Phone Number [address] [address] * Mumps antibody, IgG (05/07/2019 12:31 PM EDT) MUMPS IGG AB Positive Positive [facility] Blood (Blood) 05/07/2019 12: 31 PM EDT 05/07/2019 12:36 PM EDT Pricila Dunne ORTHOPEDIC RADIOLOGIC TECHNOLOGIST NON CULTURE MICROBIOLOGY Final Result Performing Organization Address [facility] Co de Phone Number [address] [address] documented in this encounter Visit Diagnoses Diagnosis Immunity status testing- Primary Antibody response examination documented in this encounter Additional Health Concerns Infection Onset Date Last Indicated Resolved Time CoV-Risk Comment:COVID-19 test pending 01/28/2020 01/28/2020 02/11/2020 1:24 AM EDT documented as of this encounter Care Teams Furniture Rental Consultant Relationship Specialty Start Date End Date Shawnee Romo MD [address] [place] [id number] PCP - General Internal Medicine 05/07/19 documented as of this encounter Additional Source Comments The information contained in this document represents components of the legal health record. It is not the complete legal health record.[facility]
== END ==
LOC: HO.CARD 08:09
PROVIDERS: PCP Internal Medicine; Visit Provider Internal Medicine Cardiovascular Disease
DX: I71.20 Thoracic aortic aneurysm, without rupture, unspecified (principal)
CPT/HCPCS: 93306

== ENCOUNTER → 2025-05-13 08:11 | Outpatient (BNV) | payer BC, SELFPAY | PROVIDERS: PCP Internal Medicine; Visit Provider Internal Medicine | DX: I71.20 Thoracic aortic aneurysm, without rupture, unspecified (principal) | CPT/HCPCS: 93306 ==

== ENCOUNTER 2025-07-31 13:10 | Outpatient (AMB) | payer BC, SELFPAY ==
[2025-07-31 13:19] VITALS: BP 138/82; PULSE 105; O2SAT 98; BMI 44.5
--- NOTE | 2025-07-31 13:19 | A.OFFPC_ITS ---
Vital Signs 07/31/25 13:19 Height 5 ft 7 in Weight 284 lb BMI 44.5 BP 138/82 Blood Pressure Location Lt brachial Position Sitting Pulse 105 H Pulse Source Pulse Oximeter Pulse Oximetry (%) 98 Oxygen Delivery Method Room Air Intake Visit Reasons: cad Allergies lisinopril Allergy (Unknown, Verified 07/31/25 14:38) cough Medication List - Last Reconciled 07/31/25 by Shawnee Romo MD amlodipine 10 mg PO DAILY aspirin 81 mg PO DAILY 90 days atorvastatin 40 mg PO BEDTIME losartan 100 mg PO DAILY 90 days metformin 500 mg PO DAILY semaglutide (weight loss) (Wegovy) 0.25 mg (0.5 mL) subcut QWEEK Tobacco use date assessed: 04/14/25 Dental Screening Dental Screen Date: 04/14/25 [facility] Medical History (Updated 07/31/25 @ 13:36 by Shawnee Romo MD) Obesity Liver cyst Renal calculus, right Gilbert syndrome Alcohol abuse Mitral regurgitation CAD (coronary artery disease) Obesity (BMI 30-39.9) Hypertension GERD (gastroesophageal reflux disease) Hypercholesterolemia Type 2 diabetes mellitus with hyperglycemia Surgical History (Updated 07/31/25 @ 14:39 by Aldo Almonte, RN) History of appendectomy Trigger finger of left hand History of intussusception History of arthroscopy Family History (Updated 07/31/25 @ 14:40 by Aldo Almonte, RN) Father Aortic dissection Mother Hypertension Pancreatic cancer Paternal Grandmother CVD (cerebrovascular disease) Maternal Aunt CVD (cerebrovascular disease) Brother Myocardial infarct Social History (Updated 07/31/25 @ 14:40 by Aldo Almonte, RN) Housing: House Alcohol intake: current Comment: 2-3 x a week 4-5 beers Patient Tobacco Use Status: Former Tobacco user Tobacco use type: Cigarette Years Smoked: 1998 quit e-Cigarette/Vaping Use: Never Used Second Hand Smoke Exposure: No Current occupational status: employed Cognitive needs: No Hearing needs: No Vision needs: Yes Questionnaire Thrive Questionnaire Date Thrive assessed: 04/07/25 I am a: Patient What is your living situation today?: I have a steady place to live Within the past 12 months, did the food you bought not last and you didn't have the money to get more?: Never true Within the past 12 months, did you worry whether your food would run out before you got money to buy more?: Never true Do you have trouble paying for medicines?: No Do you have trouble getting transportation to medical appointments?: No Do you have trouble paying your heating and electricity bill?: No Do you have trouble taking care of your child, family member or friend?: No Do you have trouble with day-to-day activities such as bathing, preparing meals, shopping, managing finances, etc.?: No Are you currently unemployed and looking for a job?: No Are you interested in more education?: Yes Please select the resources that you would like help with: None Currently or been in a relationship where the following occur: No concerns reported THRIVE Score: 0 SANAZ-7 AMB Questionnaire SANAZ-7 Date SANAZ - 7 assessed: 04/14/25 Source: Developed by Drs. Hernando George, Shanita Jacobson, Efren Irving and colleagues, with an educational ashutosh from [employer]. Physical exam (Primary Care) Vital Signs: Last Vital Signs Pulse 105 H 07/31/25 13:19 BP 138/82 07/31/25 13:19 Pulse Ox 98 07/31/25 13:19 Oxygen Delivery Method Room Air 07/31/25 13:19 BMI result Body Mass Index 44.5 Tobacco/Smoking Status: Tobacco use Status Tobacco use date assessed 04/14/25 07/31/25 13:20 Patient Tobacco Use Status Former Tobacco user 07/31/25 13:20 Tobacco use type Cigarette 07/31/25 13:20 e-Cigarette/Vaping Use Never Used 07/31/25 13:20 Thrive Assessment: Date of Thrive Assessment Date Thrive assessed 04/07/25 07/31/25 13:20 Currently or been in a relationship where the following occur: No concerns reported Const General: alert; No acute distress Eyes Conjunctivae: conjunctivae normal Resp Auscultation: clear to auscultation bilaterally Cardio Rate: regular rate Rhythm: regular rhythm GI Inspection: Yes normal to inspection Extrem General: Yes normal to inspection and No edema Office Procedures Flu Questionnaire Does the patient have a severe egg allergy?: No Does the patient have severe life threatening allergies?: No Does the patient have a fever or illness today?: No Has the patient ever had Guillain-Chickasha Syndrome?: No Has the patient ever had any past reaction to a flu shot?: No Results AMB Hemoglobin A1c AMB Hemoglobin A1c 6.1 % Last Edit by Diana Knox CMA on 07/31/25 13 :40 Immunizations Fluarix [id number] (PF) 45 mcg (15 mcg x 3)/0.5 mL IM syringe Performing Provider: Shawnee Romo MD [place] [place] [facility] Administered by: Diana Knox CMA on 07/31/25 13:40 Dose Route Admin Location Dispensed Lot Number Expiration Date NDC [employer] 0.5 mL IM Left Deltoid 0.5 mL [id number] 03/17/26 [id number] [employer] VIS Given Date VIS Provided VIS Publication Date 07/31/25 Single Vaccine 24 Eligibility Eligibility Date Funding Source Not [facility] Eligible 07/31/25 Private Results Reviewed Results Reviewed: Laboratory Last Values Hgb A1c (Clinic) 6.1 % (4.0-6.0) H 07/31/25 13:40 Coding Level of Care Code Est Pt Level 4 (95646) Complex EM visit Add On G2211 Diagnoses Type 2 diabetes mellitus with hyperglycemia E11.65 Hypertension I10 CAD (coronary artery disease) I25.10 Thoracic aortic aneurysm I71.20 Hypercholesterolemia E78.00 Morbid obesity E66.01 GERD (gastroesophageal reflux disease) K21.9 Colon cancer screening Z12.11 Assessment & Plan Assessment & Plan (1) Type 2 diabetes mellitus with hyperglycemia: Comment: [facility] eye Code(s): E11.65 - Type 2 diabetes mellitus with hyperglycemia Category: Medical Plan: Decrease the amount of carbohydrate intake, pasta, bread, rice and potatoes are all sugar and that is aside from all the sweet stuff, remember that fruits are good but they are Sweet also. hemoglobin A1c goal of less than 6.5. Patient on metformin 500 mg once a day and was prescribed semaglutide (2) Hypertension: Comment: February 2019 normal left ventricle impaired relaxation moderate MR February 2019 stress test negative Code(s): I10 - Essential (primary) hypertension Category: Medical Plan: Continue with blood pressure medication. Decrease salt intake and exercise takes losartan 100 mg once a day amlodipine 10 mg once a day (3) CAD (coronary artery disease): Comment: Elevated coronary calcium score, total of 42 suggestive underlying coronary artery disease, Code(s): I25.10 - Atherosclerotic heart disease of [place] coronary artery without angina pectoris Category: Medical Plan: Control the cholesterol, weight, blood pressure, diabetes on aspirin 81 mg once a day (4) Thoracic aortic aneurysm: Comment: January 2022, April 2025 4 cm Code(s): I71.20 - Thoracic aortic aneurysm, without rupture, unspecified Category: Medical Plan: continuing to monitor. Control the blood pressure (5) Hypercholesterolemia: Code(s): E78.00 - Pure hypercholesterolemia, unspecified Category: Medical Plan: Avoid fried foods, chicken skin, eggs, butter margarine, pastries and meat. Be it pork or beef they have a lot of cholesterol LDL goal of less than 70 and triglyceride of less than 150 on atorvastatin 40 mg once a day. Last blood work was in April (6) Morbid obesity: Code(s): E66.01 - Morbid (severe) obesity due to excess calories Category: Medical Plan: diet and exercise (7) GERD (gastroesophageal reflux disease): Code(s): K21.9 - Gastro-esophageal reflux disease without esophagitis Category: Medical Plan: Avoid the foods that causes that usually spicy foods, tomato products, juices, coffee, soda and foods that your sensitive to. After eating do not lie down, allow 3-4 hours before in lie down. And keep the head of bed above 30 degrees to avoid the acid from going up. (8) Colon cancer screening: Code(s): Z12.11 - Encounter for screening for malignant neoplasm of colon Category: Medical Plan: Patient is reminded about colonoscopy- scheduled for 10/2025 Plan History of Present Illness The patient is a 60-year-old male presenting for a follow-up visit for management of multiple chronic conditions. His past medical history is significant for lupus, diabetes mellitus, hypercholesterolemia, GERD, hypertension, and coronary artery disease. The patient has a history of a thoracic aortic aneurysm diagnosed in January 2022. An echocardiogram in April 2025 showed a stable aneurysm size of 4 cm, an ejection fraction of 56%, and no obvious valvular pathology. Blood work from April 2025 revealed a normal blood count with no anemia, normal electrolytes, and normal renal function. At that time, his blood sugar was 140 mg/dL, and his hemoglobin A1c was 6.3%. His liver function was normal, LDL cholesterol was 54 mg/dL, and PSA, B12, folic acid, and thyroid levels were all within normal limits with no proteinuria. The patient's last colonoscopy was in 2013 and is currently due. He was previously prescribed semaglutide for weight management, but it was denied by his insurance. He has a consultation scheduled with a weight management assistant. Health Maintenance The patient was reminded he is due for a colonoscopy and has a consultation scheduled for October 20. The patient will receive a flu shot today and was advised about the optional shingles vaccine. He was advised to have his new eye doctor send visit notes after his appointment on September 05. Social History - Exercise: The patient reports he is trying but acknowledges he is not exercising as much as he should. - Family and Social Support: The patient has a and three daughters. - Risk Reduction Behavior: The patient complies with his daughters' request to take a COVID-19 test before visiting them. Review of Systems - Constitutional: Patient denies specific complaints when generally asked. - Gastrointestinal: Reports good bowel movements. Physical Exam - Qrrqb-nx-Crxe Testing: Hemoglobin A1c 6.1%. - Respiratory: Lungs clear to auscultation. Results - Labs from April 2025: - Complete blood count: Normal, no anemia. - Comprehensive metabolic panel: Normal electrolytes and normal renal function. - Blood sugar: 140 mg/dL. - Hemoglobin A1c: 6.3%. - Liver function tests: Normal. - Lipid panel: LDL cholesterol 54 mg/dL. - PSA, Vitamin B12, Folic acid, TSH: All within normal limits. - Urinalysis: No proteinuria. - Echocardiogram from April 2025: - Ejection fraction: 56%. - Aneurysm size: Stable at 4 cm. - Valves: No obvious valvular pathology. Plan Patient was informed and verbally consented to the use of an ambient scribe for clinic note documentation during this visit. 1. Diabetes Mellitus The goal for hemoglobin A1c is less than 6.5%, and today's [id number]-[id number] result was 6.1%, showing continued improvement from 6.3% in April. The patient will continue metformin 500 mg once a day. A prescription for semaglutide was denied by insurance, and the patient has a follow-up with weight management. The importance of diet and exercise was reinforced. 2. Hypertension The patient's blood pressure is well-controlled. Continue losartan 100 mg once a day and amlodipine 10 mg once a day. 3. Hypercholesterolemia The goals are an LDL less than 70 mg/dL and triglycerides less than 150 mg/dL. The last LDL was 54 mg/dL. The patient will continue atorvastatin 40 mg once a day. 4. Coronary Artery Disease The patient will continue taking aspirin 81 mg once a day and will continue to be monitored. 5. Thoracic Aortic Aneurysm Recent echocardiogram showed the aneurysm is stable at 4 cm with normal heart function. Continue to monitor. 6. Gastroesophageal Reflux Disease The plan for GERD was addressed. Discussion Notes I reviewed the patient's recent echocardiogram from April, confirming that his thoracic aortic aneurysm is stable at 4 cm and his heart function is normal with an ejection fraction of 56% and no valvular issues. We discussed his lab work from April, noting his improved hemoglobin A1c of 6.3% and excellent LDL cholesterol of 54. I was pleased to see his rbjai-cd-krdu A1c today was even better at 6.1%. We talked about weight management and acknowledged that his insurance did not approve semaglutide. I supported his upcoming consultation with the weight management team as a positive step. I reminded him about his overdue colonoscopy, and he confirmed he has a consultation scheduled. I advised him that he would be getting his flu shot today and informed him about the optional, two-part shingles vaccine available at pharmacies. I instructed him to have his new eye doctor send us their notes from his upcoming appointment. We concluded with anticipatory guidance, advising him to remain cautious due to circulating viruses like COVID and RSV. Patient Instructions - Continue to take your current medications for diabetes, high blood pressure, and high cholesterol as prescribed. - You will receive your flu shot today in the office. - You may get the shingles vaccine at your pharmacy. - Keep your appointment with the weight management planner. - Continue with your efforts in diet and exercise. - Attend your colonoscopy consultation scheduled for October 20. - Go to your eye doctor appointment on September 05 and ask their office to send us a copy of the visit notes. - Please be careful and take precautions as viruses like COVID and RSV are still circulating. - If you have any concerns, please let us know. Orders: Orders Influenza [id number] Immunization Today Z23 - Encounter for immunization AMB Hemoglobin A1c Today Z13.9 - Encounter for screening, unspecified Medications: Discontinued semaglutide (weight loss) (Harry) administer weeks 1 through 4 of therapy Discontinued Reason: Insurance Denied 0.25 mg (0.5 mL) subcut QWEEK 2 mL 0RF
--- OUTSIDE RECORDS SUMMARY | 2025-07-31 16:31 | XMS_ITS | Encounter Summary ---
Author Organization [facility] Address [address] [place] [address] Care Team Providers Care Grain Blender Name Role Phone Unavailable Primary Care Provider Unavailabl e Encounter Details Date Type Department Care Team (Late st Contact Info) Description 08/14/2024 Scanned Document [facility] [place]: Oncology and Hematology [place] [address] [place] [address] Sadie Oates MD [address] [phone] Social History Tobacco Use Types [...]
--- OUTSIDE RECORDS SUMMARY | 2025-07-31 16:31 | XMS_ITS | Encounter Summary ---
Author Organization [facility] Address [address] [place] [address] Care Team Providers Care Costume Specialist Name Role Phone Unavailable Primary Care Provider Unavailabl e Encounter Details Date Type Department Care Team (Late st Contact Info) Description 08/14/2024 Scanned Document [facility] [place]: Oncology and Hematology [place] [address] [place] [address] Sadie Oates MD [address] [phone] Social History Tobacco Use Types [...]
--- OUTSIDE RECORDS SUMMARY | 2025-07-31 16:32 | XMS_ITS | Patient Health Record ---
Author Organization [facility] Address [address] [facility] [place] [address] Care Team Providers Care Skeins Yarn Examiner Name Role Phone Shawnee Romo Primary Care Provider Rafael Castrejon Unavailable [phone] Reason For Referral No Information Medications Medication [...] Status Risk Notes Problem Plantar fascial fibromatosis ([id number]) Plantar fascial fibromatosis (M72.2) Active confirmed Plan Of Treatment No Information Insurance Providers Payer Name Payer Address Payer Phone Subscriber Number Group Number Insured Name Patient Relationship to Insured Coverage Start Date Coverage End Date [facility] [address] [place] [address] [id number] Saravanan Morgan Self - patient is the insured Medical (General) History Medical History History ICD Code High blood pressure Reflux ( GERD) Warts Mitral valve regurgitation Intussuception Surgical History Surgery Date(Month/Year)
--- OUTSIDE RECORDS SUMMARY | 2025-07-31 16:32 | XMS_ITS | Clinical Summary ---
Author Organization [facility] Address [address] [place] [address] Care Team Providers Care Chip Unloader Name Role Phone Unavailable Primary Care Provider [...] of 2) 01/21/2016 COVID-19 Vaccine (1 - season) 2025 RSV Vaccine 50 years and old er and Patients (1 - 1-dose 75+ series) 2041
--- OUTSIDE RECORDS SUMMARY | 2025-07-31 16:32 | XMS_ITS | Encounter Summary ---
Author Organization [facility] Address [address] [place] [address] Phone Care Team Providers Care Steamship Agent Name Role Phone Shawnee Romo MD Primary Care Provider [phone] Encounter Details Date Type Department Care Team (Late st Contact Info) Description 05/07/2019 Transcribe Orders [facility]b [address] [place] [address] Pricila Dunne, ERNESTO [address] [place] [address], [address] [place] [address] [email or web address] Immunity status testing (Primary Dx) Social History [...] 12:31 PM EDT) HBV SURFACE ANTIBODY Negative [facility] Blood 05/07/2019 12:3 1 PM EDT 05/07/2019 12:36 PM EDT us Pricila Dunne CNP LAB BLOOD BKR ORDERABLES Final Result [facility] [address] [place] [address] * Rubella antibody, IgG (05/07/2019 12:31 PM EDT) Rubella Ab, IgG Positive Positive [facility] Blood (Blood) 05/07/2019 12: 31 PM EDT 05/07/2019 12:36 PM EDT Pricila Dunne [facility] LAB BLOOD BKR ORDERABLES Final Result Performing Organization Address [facility] Co de Phone Number [address] [address] * Measles antibody, IgG (05/07/2019 12:31 PM EDT) RUBEOLA IGG Positive Positive [facility] Blood (Blood) 05/07/2019 12: 31 PM EDT 05/07/2019 12:36 PM EDT Pricila Dunne [facility] LAB BLOOD BKR ORDERABLES Final Result Performing Organization Address [facility] Co de Phone Number [address] [address] * Mumps antibody, IgG (05/07/2019 12:31 PM EDT) MUMPS IGG AB Positive Positive [facility] Blood (Blood) 05/07/2019 12: 31 PM EDT 05/07/2019 12:36 PM EDT Pricila Dunne [facility] LAB BLOOD BKR ORDERABLES Final Result Performing Organization Address [facility] Co de Phone Number [address] [address] documented in this encounter Visit Diagnoses Diagnosis Immunity status testing- Primary Antibody response examination documented in this encounter Additional Health Concerns Infection Onset Date Last Indicated Resolved Time CoV-Risk Comment:COVID-19 test pending 01/28/2020 01/28/2020 02/11/2020 1:24 AM EDT documented as of this encounter Care Teams Steamship Agent Relationship Specialty Start Date End Date Shawnee Romo MD [address] [place] [id number] PCP - General Internal Medicine 05/07/19 documented as of this encounter Additional Source Comments The information contained in this document represents components of the legal health record. It is not the complete legal health record.[facility]
--- OUTSIDE RECORDS SUMMARY | 2025-07-31 16:32 | XMS_ITS | Clinical Summary ---
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 Name Role Phone Shawnee Romo MD Primary Care Provider [phone] Medications No known medications Immunizations Immunization Administration [...] (2 of 2 - PCV) 08/08/2020 08/08/2019 INFLUENZA VACCINE (#1) 2025 06/23/2016 COVID-19 VACCINE ( season) 2025 08/20/2023, 06/03/2022, 07/02/2021, Additional history exists Adult Td,Tdap Booster 05/25/2031 05/25/2021 , 04/02/2009, 02/09/2000 RSV VACCINE (1 - 1-dose 75+ series) 2041 HEPATITIS A VACCINES Aged Out No long er eligible based on patient's age to complete this topic HIB VACCINES Aged Out No longer eligi ble based on patient's age to complete this topic IPV VACCINES Aged Out No longer eligi ble based on patient's age to complete this topic MENINGOCOCCAL VACCINES (ACWY) Aged Out No longer eligible based on patient's age to complete this topic MENINGOCOCCAL VACCINES (B) Aged Out N o longer eligible based on patient's age to complete this topic Medical Devices Not on file [place] [address] [place], [place] [address] [place] [place] [address] [place] [address] Care Teams Shear Grinder Operator Relationship Specialty Start Date End Date Shawnee Romo MD [address] [place] [phone] PCP - General Internal Medicine 05/07/19 Additional Source Comments The information contained in this document represents components of the legal health record. It is not the complete legal health record.[facility]
== END 2025-07-31 13:45 | disposition home or self-care (01) ==
LOC: HO.HMCH 13:11
PROVIDERS: PCP Internal Medicine; Visit Provider Internal Medicine
DX: E11.65 Type 2 diabetes mellitus with hyperglycemia (principal); Z68.41 Body mass index [BMI] 40.0-44.9, adult; E66.01 Morbid (severe) obesity due to excess calories; I10 Essential (primary) hypertension; I25.10 Atherosclerotic heart disease of native coronary artery without angina pectoris; I71.20 Thoracic aortic aneurysm, without rupture, unspecified; E78.00 Pure hypercholesterolemia, unspecified; K21.9 Gastro-esophageal reflux disease without esophagitis; Z12.11 Encounter for screening for malignant neoplasm of colon; Z23 Encounter for immunization

== ENCOUNTER → 2025-07-31 13:10 | Outpatient (BNVA) | payer BC, SELFPAY | PROVIDERS: PCP Internal Medicine; Visit Provider Internal Medicine | DX: Z23 Encounter for immunization (principal); Z12.11 Encounter for screening for malignant neoplasm of colon; E11.65 Type 2 diabetes mellitus with hyperglycemia; I10 Essential (primary) hypertension; I25.10 Atherosclerotic heart disease of native coronary artery without angina pectoris; I71.20 Thoracic aortic aneurysm, without rupture, unspecified; E78.00 Pure hypercholesterolemia, unspecified; E66.01 Morbid (severe) obesity due to excess calories; K21.9 Gastro-esophageal reflux disease without esophagitis; Z68.41 Body mass index [BMI] 40.0-44.9, adult | CPT/HCPCS: 83036; 90471; 90656 ==